=== PATIENT | male | born 1995 | race Caucasian/White ===

== ENCOUNTER 2018-06-06 11:01 | Emergency (ER) | payer OTHER, MEDICAID, SELFPAY ==
[2018-06-06 11:30] VITALS: BP 113/69; PULSE 89; RESP 16; TEMP 37.4; O2SAT 100
[2018-06-06] MEDS: SODIUM CHLORIDE 0.9% 1,000 ML 1000 ML IV ×3 (12:12→15:05)
[2018-06-06] MEDS: ONDANSETRON 4 MG/2 ML INJ IV (12:12)
--- NOTE | 2018-06-06 12:14 | ED.ABDPAIN ---
HPI - Abdominal Pain General Chief Complaint: Abdominal Pain Stated Complaint: thinks food poisoning, rapid weight loss Time Seen by Provider: 06/06/18 11:18 Source: patient and family Mode of arrival: ambulatory Limitations: no limitations History of Present Illness HPI narrative: 22-year-old otherwise healthy male presents to the emergency department with his mother and a chief complaint of significant nausea, vomiting, diarrhea and crampy abdominal pain since Monday. He states he works at a local [employer] and has heard other ill persons have been there. He denies recent international travel. He denies recent antibiotic use, he denies exposure to bad food. He has lost about 11 pounds complaint: abdominal pain Onset (ago): day(s) Pain Consistency: intermittent Location: diffuse Severity: moderate Quality: cramping Radiation: none Migration to: no migration Relieving factors: nothing Exacerbating factors: nothing Context: possible food poisoning Associated symptoms: nausea, vomiting, diarrhea, fever and chills Related Data Previous Rx's Medication Instructions Recorded ciprofloxacin HCl 500 mg PO BID #14 tab 06/06/18 ondansetron [Zofran ODT] 4 mg PO Q6-8H PRN #10 tab 06/06/18 Allergies Allergy/AdvReac Type Severity Reaction Status Date / Time bacitracin Allergy Mild skin Unverified 01/31/18 13:10 [From Neosporin irritation ([id number])] neomycin Allergy Mild Unverified 01/31/18 13:10 [From Neosporin ([id number])] polymyxin B Allergy Mild Unverified 01/31/18 13:10 [From Neosporin ([id number])] Review of Systems Review of Systems All systems reviewed & are unremarkable except as noted in HPI and below Constitutional Reports body ache(s), Reports chills, Reports fever(s), Denies lethargy and Reports weakness Eyes Denies change in vision, Denies eye discharge, Denies irritation and Denies loss of vision ENT Ears, Nose, Mouth, and Throat: Denies change in voice, Denies neck pain and Denies sore throat Cardiovascular Denies chest pain, Denies irregular heart rhythm, Denies lightheadedness, Denies palpitations, Denies dyspnea, Denies dyspnea on exertion and Denies orthopnea Respiratory Denies cough, Denies dyspnea, Denies dyspnea on exertion and Denies wheezing Gastrointestinal Gastrointestinal: Denies abdominal pain, Denies change in bowel habits, Reports diarrhea, Reports nausea and Reports vomiting Genitourinary Denies hematuria, Denies flank pain, Denies urinary incontinence and Denies urinary urgency Musculoskeletal Denies neck pain Integumentary/Breasts Denies pruritus, Denies erythema, Denies rash and Denies wounds Neurologic Denies confusion, Denies loss of vision and Reports weakness Psychiatric Denies anxiety, Denies confusion, Denies depression, Denies homicidal ideation and Denies suicidal ideation Endocrine Denies palpitations Hematologic/Lymphatic Denies easy bruising Allergic/Immunologic Denies wheezing [facility] Social History Smoking Status: Never smoker Exam Narrative Exam Narrative: GENERAL: This is a well-nourished, well-developed patient, in mild distress. HEAD: Atraumatic. Normocephalic. No temporal or scalp tenderness. EYES: Pupils equal round and reactive. Extraocular motions intact. No scleral icterus. No injection or drainage. ENT: Nose without bleeding, purulent drainage or septal hematoma. Throat without erythema, tonsillar hypertrophy or exudate. Uvula midline. Airway patent. NECK: Trachea midline. No JVD or lymphadenopathy. Supple, nontender, no meningeal signs. CARDIOVASCULAR: Regular rate and rhythm without murmurs, gallops, or rubs. RESPIRATORY: Clear to auscultation. Breath sounds equal bilaterally. No wheezes, rales, or rhonchi. GASTROINTESTINAL: Abdomen soft, non-tender, nondistended. No hepato-splenomegaly, or palpable masses. No guarding. EXTREMITIES: No clubbing, cyanosis, or edema. No joint tenderness, effusion, or edema noted. BACK: Nontender without deformity or crepitance. No flank tenderness. NEURO: AOx3. SKIN: No rash or erythema. Initial Vital Signs Initial Vital Signs: Vital Signs Temperature 99.3 F 06/06/18 11:30 Pulse Rate 89 06/06/18 11:30 Respiratory Rate 16 06/06/18 11:30 Blood Pressure 113/69 06/06/18 11:30 Pulse Oximetry 100 06/06/18 11:30 Course Orders Ordered: Discontinued Medications Sodium Chloride (Normal Saline 0.9%) 1,000 mls @ 1,000 mls/hr IV BOLUS PRN PRN Reason: Diarrhea Last Infusion: 06/06/18 16:21 Dose: 0 mls/hr Admin: 06/06/18 15:05 Dose: 1,000 mls/hr Infusion: 06/06/18 15:05 Dose: 0 mls/hr Admin: 06/06/18 13:43 Dose: 1,000 mls/hr Infusion: 06/06/18 13:43 Dose: 0 mls/hr Admin: 06/06/18 12:12 Dose: 1,000 mls/hr Ondansetron HCl (Zofran) 4 mg IV NOW ONE Stop: 06/06/18 11:49 Last Admin: 06/06/18 12:12 Dose: 4 mg Vital Signs - 8 hr 06/06/18 11:30 Temperature 99.3 F Pulse Rate 89 Respiratory Rate 16 Blood Pressure 113/69 Pulse Oximetry 100 MDM - Abdominal Pain Lab Data Result diagrams: 06/06/18 12:05 06/06/18 12:05 Lab Results 06/06/18 06/06/18 06/06/18 Range/Units 12:05 12:05 14:45 WBC 8.7 (4.5-11.0) X10^3/uL RBC 4.27 L (4.5-5.9) X10^6/uL Hgb 13.7 (13.5-17.5) g/dL Hct 38.5 L (41-53) % MCV 90.1 (80-100) fL MCH 32.2 (26-34) PG MCHC 35.7 (30-36) % RDW 12.4 (11.6-14.8) % Plt Count 203 (150-400) X10^3/uL Neut % (Auto) 59.1 (50-75) % Lymph % (Auto) 17.6 L (25-40) % [place] % (Auto) 20.3 H (3-14) % Eos % (Auto) 2.2 (2-4) % Baso % (Auto) 0.8 (0-2) % Neut # (Auto) 5100 (7725-2529) /uL Sodium 138 (137-145) mmol/L Potassium 3.7 (3.4-5.1) mmol/L Chloride 101 (98-107) mmol/L Carbon Dioxide 28 (22-32) mmol/L BUN 11 (9-20) mg/dL Creatinine 0.80 (0.66-1.25) mg/dL Estimated GFR > 60.0 (>60) mL/min BUN/Creatinine Ratio 13.8 (6-22) Glucose 93 (70-100) mg/dL Calcium 8.9 (8.4-10.2) mg/dL Total Bilirubin 1.3 (0.2-1.3) mg/dL AST 20 (17-59) IU/L ALT 25 (21-72) IU/L Alkaline Phosphatase 57 (38-126) U/L Total Protein 6.5 (6.3-8.2) g/dL Albumin 3.8 (3.5-5.0) g/dL Globulin 2.7 (1.7-4.1) g/dL Albumin/Globulin Ratio 1.4 (1.0-2.8) Stool Aeromonas Cult Awaiting culture res (Not Detect) Stl C. cayetanensis PCR Not detected (Not Detect) Stool Rotavirus (PCR) Not detected (Not Detect) Stool Adenovirus (PCR) Not detected (Not Detect) Stool Astrovirus (PCR) Not detected (Not Detect) Stool Cryptosporidium PCR Not detected (Not Detect) Stl E.coli Shiga Tox PCR Not detected (Not Detect) St Sh/Enteroin Ecoli PCR Not detected (Not Detect) Stool E coli O157 PCR Not Reportable Stl Enterotoxigenic E PCR Not detected (Not Detect) Stool EPEC (PCR) Not detected (Not Detect) Stl E. histolytica PCR Not detected (Not Detect) Stool Giardia Lamblia PCR Not detected (Not Detect) Stool Sapovirus (PCR) Not detected (Not Detect) Stl P. shigelloides PCR Not detected (Not Detect) St Y.enterocolitica PCR Not detected (Not Detect) Stool Vibrio (PCR) Not detected (Not Detect) Stl Vibrio cholerae PCR Not detected (Not Detect) Stl Enteroaggr Ecoli PCR Not detected (Not Detect) Stl Norovirus GI/GII PCR Not detected (Not Detect) Campylobacter (PCR) Detected H (Not Detect) C. difficile Tox (PCR) Not detected (Not Detect) Salmonella (PCR) Not detected (Not Detect) Point of care testing: Point of Care Testing Glucose POC 83 Urine Dip Bedside Urine Glucose Negative Bedside Urine Bilirubin - Negative Bedside Urine Ketone - Negative Urine Specific [place] 1.015 Bedside Urine Occult Blood - Negative Bedside Urine pH 6.0 Bedside Urine Protein - Negative Bedside Urine Urobilinogen - Negative Bedside Urine Nitrite - Negative Bedside Urine Leukocytes - Negative Esterase Discharge Plan Departure Patient Disposition: Home Clinical Impression: Campylobacter diarrhea Discharge Date/Time: 06/06/18 18:38 Interventions: ED Discharge Assessment Last Done: 06/06/18 18:37 Instructions: Diarrhea Activity Restrictions/Additional Instructions: 1. Drink plenty of fluids with frequent small sips. 2. For the next 24 hours a clear liquid diet is advised. After that please employ a brat diet which would include bananas, rice, apples, toast. 3. Please take medications as directed. 4. Please follow-up with your doctor in the next 1-2 days. Call the office for an appointment. 5. Please return to the emergency Department for any worsening or persistent symptoms, such as increasing pain or fever. Prescriptions: New ciprofloxacin HCl 500 mg tablet 500 mg PO BID Qty: 14 RF: 0 ondansetron [Zofran ODT] 4 mg tablet,disintegrating 4 mg PO Q6-8H PRN (Reason: nausea and vomiting) Qty: 10 RF: 0 Stand Alone Forms: Work/School Restrictions
[2018-06-06 12:15] LABS: Add Manual Diff / Slide Review NO; Basophils Percent Auto 0.8 % (0-2); Eosinophils Percent Auto 2.2 % (2-4); Hematocrit 38.5 % (41-53); Hemoglobin 13.7 g/dL (13.5-17.5); Lymphocytes Percent Auto 17.6 % (25-40); Mean Corpuscular HGB Conc 35.7 % (30-36); Mean Corpuscular Hemoglobin 32.2 PG (26-34); Mean Corpuscular Volume 90.1 fL (80-100); Monocytes Percent Auto 20.3 % (3-14); Neutrophils Absolute Auto 5100 /uL (3000-5900); Neutrophils Percent Auto 59.1 % (50-75); Platelet Count 203 X10^3/uL (150-400); Red Blood Cell Count 4.27 X10^6/uL (4.5-5.9); Red Cell Distribution Width 12.4 % (11.6-14.8); White Blood Cell Count 8.7 X10^3/uL (4.5-11.0)
[2018-06-06 12:26] LABS: Alanine Aminotransferase 25 IU/L (21-72); Albumin 3.8 g/dL (3.5-5.0); Albumin Globulin Ratio 1.4 (1.0-2.8); Alkaline Phosphatase 57 U/L (38-126); Aspartate Aminotransferase 20 IU/L (17-59); BUN Creatinine Ratio 13.8 (6-22); Bilirubin Total 1.3 mg/dL (0.2-1.3); Blood Urea Nitrogen 11 mg/dL (9-20); Calcium 8.9 mg/dL (8.4-10.2); Carbon Dioxide 28 mmol/L (22-32); Chloride 101 mmol/L (98-107); Estimated Glomerular Filt Rate > 60.0 mL/min (>60); Globulin 2.7 g/dL (1.7-4.1); Glucose 93 mg/dL (70-100); HEMOLYSIS < 15 (0-50); Potassium 3.7 mmol/L (3.4-5.1); Sodium 138 mmol/L (137-145); Total Protein 6.5 g/dL (6.3-8.2)
--- NOTE | 2018-06-06 12:46 | ED_ITS ---
HPI - Abdominal Pain General Chief Complaint: Abdominal Pain Stated Complaint: thinks food poisoning, rapid weight loss Time Seen by Provider: 06/06/18 11:18 Source: patient and family Mode of arrival: ambulatory Limitations: no limitations History of Present Illness HPI narrative: 22-year-old otherwise healthy male presents to the emergency department with his mother and a chief complaint of significant nausea, vomiting , diarrhea and crampy abdominal pain since Monday. He states he works at a local [employer] and has heard other ill persons have been there. He denies recent international travel. He denies recent antibiotic use, he denies exposure to bad food. He has lost about 11 pounds complaint: abdominal pain Onset (ago): day(s) Pain Consistency: intermittent Location: diffuse Severity: moderate Quality: cramping Radiation: none Migration to: no migration Relieving factors: nothing Exacerbating factors: nothing Context: possible food poisoning Associated symptoms: nausea, vomiting, diarrhea, fever and chills Related Data Previous Rx's Medication Instructions Recorded ciprofloxacin HCl 500 mg PO BID #14 tab 06/06/18 ondansetron [Zofran ODT] 4 mg PO Q6-8H PRN #10 tab 06/06/18 Allergies Allergy/AdvReac Type Severity Reaction Status Date / Time bacitracin Allergy Mild skin Unverified 01/31/18 13:10 [From Neosporin irritation ([id number])] neomycin Allergy Mild Unverified 01/31/18 13:10 [From Neosporin ([id number])] polymyxin B Allergy Mild Unverified 01/31/18 13:10 [From Neosporin ([id number])] Review of Systems Review of Systems All systems reviewed & are unremarkable except as noted in HPI and below Constitutional Reports body ache(s), Reports chills, Reports fever(s), Denies lethargy and Reports weakness Eyes Denies change in vision, Denies eye discharge, Denies irritation and Denies loss of vision ENT Ears, Nose, Mouth, and Throat: Denies change in voice, Denies neck pain and Denies sore throat Cardiovascular Denies chest pain, Denies irregular heart rhythm, Denies lightheadedness, Denies palpitations, Denies dyspnea, Denies dyspnea on exertion and Denies orthopnea Respiratory Denies cough, Denies dyspnea, Denies dyspnea on exertion and Denies wheezing Gastrointestinal Gastrointestinal: Denies abdominal pain, Denies change in bowel habits, Reports diarrhea, Reports nausea and Reports vomiting Genitourinary Denies hematuria, Denies flank pain, Denies urinary incontinence and Denies urinary urgency Musculoskeletal Denies neck pain Integumentary/Breasts Denies pruritus, Denies erythema, Denies rash and Denies wounds Neurologic Denies confusion, Denies loss of vision and Reports weakness Psychiatric Denies anxiety, Denies confusion, Denies depression, Denies homicidal ideation and Denies suicidal ideation Endocrine Denies palpitations Hematologic/Lymphatic Denies easy bruising Allergic/Immunologic Denies wheezing [facility] Social History Smoking Status: Never smoker Exam Narrative Exam Narrative: GENERAL: This is a well-nourished, well-developed patient, in mild distress. HEAD: Atraumatic. Normocephalic. No temporal or scalp tenderness. EYES: Pupils equal round and reactive. Extraocular motions intact. No scleral icterus. No injection or drainage. ENT: Nose without bleeding, purulent drainage or septal hematoma. Throat without erythema, tonsillar hypertrophy or exudate. Uvula midline. Airway patent. NECK: Trachea midline. No JVD or lymphadenopathy. Supple, nontender, no meningeal signs. CARDIOVASCULAR: Regular rate and rhythm without murmurs, gallops, or rubs. RESPIRATORY: Clear to auscultation. Breath sounds equal bilaterally. No wheezes , rales, or rhonchi. GASTROINTESTINAL: Abdomen soft, non-tender, nondistended. No hepato-splenomegaly , or palpable masses. No guarding. EXTREMITIES: No clubbing, cyanosis, or edema. No joint tenderness, effusion, or edema noted. BACK: Nontender without deformity or crepitance. No flank tenderness. NEURO: AOx3. SKIN: No rash or erythema. Initial Vital Signs Initial Vital Signs: Vital Signs Temperature 99.3 F 06/06/18 11:30 Pulse Rate 89 06/06/18 11:30 Respiratory Rate 16 06/06/18 11:30 Blood Pressure 113/69 06/06/18 11:30 Pulse Oximetry 100 06/06/18 11:30 Course Orders Ordered: Discontinued Medications Sodium Chloride (Normal Saline 0.9%) 1,000 mls @ 1,000 mls/hr IV BOLUS PRN PRN Reason: Diarrhea Last Infusion: 06/06/18 16:21 Dose: 0 mls/hr Admin: 06/06/18 15:05 Dose: 1,000 mls/hr Infusion: 06/06/18 15:05 Dose: 0 mls/hr Admin: 06/06/18 13:43 Dose: 1,000 mls/hr Infusion: 06/06/18 13:43 Dose: 0 mls/hr Admin: 06/06/18 12:12 Dose: 1,000 mls/hr Ondansetron HCl (Zofran) 4 mg IV NOW ONE Stop: 06/06/18 11:49 Last Admin: 06/06/18 12:12 Dose: 4 mg Vital Signs - 8 hr 06/06/18 11:30 Temperature 99.3 F Pulse Rate 89 Respiratory Rate 16 Blood Pressure 113/69 Pulse Oximetry 100 MDM - Abdominal Pain Lab Data Result diagrams: 06/06/18 12:05 06/06/18 12:05 Lab Results 06/06/18 06/06/18 06/06/18 Range/Units 12:05 12:05 14:45 WBC 8.7 (4.5-11.0) X10^3/uL RBC 4.27 L (4.5-5.9) X10^6/uL Hgb 13.7 (13.5-17.5) g/dL Hct 38.5 L (41-53) % MCV 90.1 (80-100) fL MCH 32.2 (26-34) PG MCHC 35.7 (30-36) % RDW 12.4 (11.6-14.8) % Plt Count 203 (150-400) X10^3/uL Neut % (Auto) 59.1 (50-75) % Lymph % (Auto) 17.6 L (25-40) % [place] % (Auto) 20.3 H (3-14) % Eos % (Auto) 2.2 (2-4) % Baso % (Auto) 0.8 (0-2) % Neut # (Auto) 5100 (5082-0056) /uL Sodium 138 (137-145) mmol/L Potassium 3.7 (3.4-5.1) mmol/L Chloride 101 (98-107) mmol/L Carbon Dioxide 28 (22-32) mmol/L BUN 11 (9-20) mg/dL Creatinine 0.80 (0.66-1.25) mg/dL Estimated GFR > 60.0 (>60) mL/min BUN/Creatinine Ratio 13.8 (6-22) Glucose 93 (70-100) mg/dL Calcium 8.9 (8.4-10.2) mg/dL Total Bilirubin 1.3 (0.2-1.3) mg/dL AST 20 (17-59) IU/L ALT 25 (21-72) IU/L Alkaline Phosphatase 57 (38-126) U/L Total Protein 6.5 (6.3-8.2) g/dL Albumin 3.8 (3.5-5.0) g/dL Globulin 2.7 (1.7-4.1) g/dL Albumin/Globulin Ratio 1.4 (1.0-2.8) Stool Aeromonas Cult Awaiting culture res (Not Detect) Stl C. cayetanensis PCR Not detected (Not Detect) Stool Rotavirus (PCR) Not detected (Not Detect) Stool Adenovirus (PCR) Not detected (Not Detect) Stool Astrovirus (PCR) Not detected (Not Detect) Stool Cryptosporidium PCR Not detected (Not Detect) Stl E.coli Shiga Tox PCR Not detected (Not Detect) St Sh/Enteroin Ecoli PCR Not detected (Not Detect) Stool E coli O157 PCR Not Reportable Stl Enterotoxigenic E PCR Not detected (Not Detect) Stool EPEC (PCR) Not detected (Not Detect) Stl E. histolytica PCR Not detected (Not Detect) Stool Giardia Lamblia PCR Not detected (Not Detect) Stool Sapovirus (PCR) Not detected (Not Detect) Stl P. shigelloides PCR Not detected (Not Detect) St Y.enterocolitica PCR Not detected (Not Detect) Stool Vibrio (PCR) Not detected (Not Detect) Stl Vibrio cholerae PCR Not detected (Not Detect) Stl Enteroaggr Ecoli PCR Not detected (Not Detect) Stl Norovirus GI/GII PCR Not detected (Not Detect) Campylobacter (PCR) Detected H (Not Detect) C. difficile Tox (PCR) Not detected (Not Detect) Salmonella (PCR) Not detected (Not Detect) Point of care testing: Point of Care Testing Glucose POC 83 Urine Dip Bedside Urine Glucose Negative Bedside Urine Bilirubin - Negative Bedside Urine Ketone - Negative Urine Specific [place] 1.015 Bedside Urine Occult Blood - Negative Bedside Urine pH 6.0 Bedside Urine Protein - Negative Bedside Urine Urobilinogen - Negative Bedside Urine Nitrite - Negative Bedside Urine Leukocytes - Negative Esterase Discharge Plan Departure Patient Disposition: Home Clinical Impression: Campylobacter diarrhea Discharge Date/Time: 06/06/18 18:38 Interventions: ED Discharge Assessment Last Done: 06/06/18 18:37 Instructions: Diarrhea Activity Restrictions/Additional Instructions: 1. Drink plenty of fluids with frequent small sips. 2. For the next 24 hours a clear liquid diet is advised. After that please employ a brat diet which would include bananas, rice, apples, toast. 3. Please take medications as directed. 4. Please follow-up with your doctor in the next 1-2 days. Call the office for an appointment. 5. Please return to the emergency Department for any worsening or persistent symptoms, such as increasing pain or fever. Prescriptions: New ciprofloxacin HCl 500 mg tablet 500 mg PO BID Qty: 14 RF: 0 ondansetron [Zofran ODT] 4 mg tablet,disintegrating 4 mg PO Q6-8H PRN (Reason: nausea and vomiting) Qty: 10 RF: 0 Stand Alone Forms: Work/School Restrictions
[2018-06-06 12:54] VITALS: BP 127/99; PULSE 76; RESP 16; TEMP 37.1; O2SAT 99
[2018-06-06 13:09] VITALS: BP 101/53; PULSE 81; RESP 16; O2SAT 100
[2018-06-06 14:18] VITALS: BP 110/58; PULSE 75; RESP 16; O2SAT 100
[2018-06-06 15:57] VITALS: BP 124/57; PULSE 94; RESP 16; O2SAT 100
[2018-06-06 17:33] VITALS: BP 100/45; PULSE 74; RESP 16; O2SAT 100
[2018-06-06 17:42] LABS: Campylobacter Detected (Not Detect); Clostridium difficile toxin AB Not Detected (Not Detect); Cryptosporidium Not Detected (Not Detect); Cyclospora cayetanensis Not Detected (Not Detect); Enteroaggregative E.coli Not Detected (Not Detect); Enteropathogenic E.coli Not Detected (Not Detect); Enterotoxigenic E.coli It/st Not Detected (Not Detect); Plesiomonsa shigelloides Not Detected (Not Detect); Salmonella Not Detected (Not Detect); Shiga-like toxin-prod E.coli Not Detected (Not Detect); Shigella/Enteroinvasive E.coli Not Detected (Not Detect); Vibrio Not Detected (Not Detect); Vibrio cholerae Not Detected (Not Detect); Yersinia enterocolitica Not Detected (Not Detect)
[2018-06-06 17:43] LABS: Adenovirus F 40/41 Not Detected (Not Detect); Astrovirus Not Detected (Not Detect); Entamoeba histolytica Not Detected (Not Detect); Giardia lamblia Not Detected (Not Detect); Norovirus GI/GII Not Detected (Not Detect); Rotavirus A Not Detected (Not Detect); Sapovirus Not Detected (Not Detect)
== END 2018-06-06 18:38 | disposition home or self-care (01) ==
PROVIDERS: Emergency Provider Emergency Medicine; PCP Family Medicine
DX: A04.5 Campylobacter enteritis (principal)
CPT/HCPCS: 36591; 80053; 81003; 82962; 85025; 87507; 96361; 96374; 99284; J2405

== ENCOUNTER 2019-03-31 19:00 | Emergency (ER) | payer OTHER, MEDICAID, SELFPAY ==
[2019-03-31 19:07] VITALS: BP 136/76; PULSE 84; RESP 16; TEMP 36.7; O2SAT 98
--- NOTE | 2019-03-31 19:08 | DI.RAD.S_ITS ---
PROCEDURE: XR ANKLE LT MIN 3V INDICATIONS: unable to bear weight TECHNIQUE: 3 views of the ankle were acquired. COMPARISON: [facility], , ANKLE 3 VIEWS LEFT, 07/01/2008, 14:37. FINDINGS: Bones: No fractures or dislocations. Ankle mortise is normally aligned. No suspicious bony lesions. Soft tissues: No tibiotalar joint effusion. Achilles tendon appears normal. IMPRESSION: No fracture or dislocation. Dictated by: Halima Reyes M.D. on 03/31/2019 at 19:54 Approved by: Halima Reyes M.D. on 03/31/2019 at 19:56
--- NOTE | 2019-03-31 20:02 | ED.LOWEXIN ---
HPI - Extremity Injury (Lower) <Una Mcconnell PA-C - Last Filed: 03/31/19 21:04> General Chief Complaint: Extremity Injury, Lower Stated Complaint: injured left foot last night Time Seen by Provider: 03/31/19 19:18 Source: patient Mode of arrival: ambulatory Limitations: no limitations History of Present Illness HPI Narrative: This 23-year-old male states that he rolled his left ankle when walking home from the bar last night since. He states he woke up this morning and was unable to bear weight due to pain. He states he did not fall. He denies any other injury. He took some ibuprofen this morning. Related Data Previous Rx's Medication Instructions Recorded ciprofloxacin HCl 500 mg PO BID #14 tab 06/06/18 ondansetron [Zofran ODT] 4 mg PO Q6-8H PRN #10 tab 06/06/18 Allergies Allergy/AdvReac Type Severity Reaction Status Date / Time bacitracin Allergy Mild skin Unverified 01/31/18 13:10 [From Neosporin irritation ([id number])] neomycin Allergy Mild Unverified 01/31/18 13:10 [From Neosporin ([id number])] polymyxin B Allergy Mild Unverified 01/31/18 13:10 [From Neosporin ([id number])] Review of Systems <Una Mcconnell PA-C - Last Filed: 03/31/19 21:04> Review of Systems ROS Unobtainable: All systems reviewed & are unremarkable except as noted in HPI and below PFSH <Una Mcconnell PA-C - Last Filed: 03/31/19 21:04> Medical History (Updated 03/31/19 @ 20:27 by Una Mcconnell PA-C) No chronic problems (Chronic) Surgical History (Updated 03/31/19 @ 20:27 by Una Mcconnell PA-C) History of hand surgery (Resolved) Status post bronchoscopy (Resolved) Social History Smoking Status: Never smoker Social History Smoking Status: Never smoker Exam <Una Mcconnell PA-C - Last Filed: 03/31/19 21:04> Narrative Exam Narrative: GENERAL APPEARANCE: Patient sitting comfortably, in no distress. LUNGS: Clear to auscultation bilaterally. HEART: Regular rate and rhythm without murmur, normal S1, S2, no S3 or S4. NEUROVASCULAR: Left lower extremity sensation grossly intact, warm and pink with brisk cap refill MUSCULOSKELETAL: Left ankle mild effusion, tender inferior to and around the lateral malleolus, no point tenderness elsewhere. Achilles is intact by palpation. He is able to plantar flex and dorsiflex the toes. Reduced ankle range of motion secondary to tenderness, especially with inversion. Unable to fully assess for laxity secondary to tenderness Initial Vital Signs Initial Vital Signs: Vital Signs Temperature 98.1 F 03/31/19 19:07 Pulse Rate 84 03/31/19 19:07 Respiratory Rate 16 03/31/19 19:07 Blood Pressure 136/76 03/31/19 19:07 Pulse Oximetry 98 03/31/19 19:07 <DO Roney Rodgers Last Filed: 03/31/19 21:15> Initial Vital Signs Initial Vital Signs: Vital Signs Temperature 98.1 F 03/31/19 19:07 Pulse Rate 84 03/31/19 19:07 Respiratory Rate 16 03/31/19 19:07 Blood Pressure 136/76 03/31/19 19:07 Pulse Oximetry 98 03/31/19 19:07 Course <BARBARA Husain Last Filed: 03/31/19 21:04> Orders Ordered: ED Orders 03/31/19 19:08 XR ankle LT min 3V Stat Vital Signs - 8 hr 03/31/19 19:07 03/31/19 20:34 Temperature 98.1 F 98.3 F Pulse Rate 84 74 Respiratory Rate 16 16 Blood Pressure 136/76 119/71 Pulse Oximetry 98 97 <DO Roney Rodgers Filed: 03/31/19 21:15> Orders Ordered: ED Orders 03/31/19 19:08 XR ankle LT min 3V Stat Vital Signs - 8 hr 03/31/19 19:07 03/31/19 20:34 Temperature 98.1 F 98.3 F Pulse Rate 84 74 Respiratory Rate 16 16 Blood Pressure 136/76 119/71 Pulse Oximetry 98 97 MDM - Extremity Injury (Lower) <Una Mcconnell PA-C - Last Filed: 03/31/19 21:04> Imaging Data ankle: Radiologist's impression: [address] [address] XRay Report Signed Patient: Ronald Tan [facility]#: [id number] : 1995Acct:[id number] Age/Sex: 23 / MDate of Service: 03/31/19 Loc: ED Accession Number: [id number] Procedure: XR ankle LT min 3V Ordering Provider: Viral Batres D.O. PROCEDURE: XR ANKLE LT MIN 3V INDICATIONS: unable to bear weight TECHNIQUE: 3 views of the ankle were acquired. COMPARISON: [facility], , ANKLE 3 VIEWS LEFT, 07/01/2008, 14:37. FINDINGS: Bones: No fractures or dislocations. Ankle mortise is normally aligned. No suspicious bony lesions. Soft tissues: No tibiotalar joint effusion. Achilles tendon appears normal. IMPRESSION: No fracture or dislocation. Dictated by: Halima Reyes M.D. on 03/31/2019 at 19:54 Approved by: Halima Reyes M.D. on 03/31/2019 at 19:56 Discharge Plan Departure Patient Disposition: Home Clinical Impression: Ankle sprain and strain Discharge Date/Time: 03/31/19 20:35 Interventions: ED Discharge Assessment Last Done: 03/31/19 20:34 Instructions: DI for Ankle Sprain Activity Restrictions/Additional Instructions: There is no visible broken bone on your x-ray today, and your injury and pain are consistent with a sprained ankle. Please wear the splint that we gave you whenever you are bearing weight to help with pain and stability. Gentle walking on flat ground is okay as you tolerate. Please take ibuprofen 800 mg every 8 hours and you can add Tylenol in addition to this as needed. Continue ice tonight. As we talked about, you should return if you have any acutely worsening symptoms. Call your insurance tomorrow or the health human resources operations manager at [facility] ([phone]) to get set up with a new primary care provider so that you can follow up in about a week. As we discussed, you may need repeat x-rays if you are not getting better, or a referral to physical therapy if not improving. Prescriptions: No Action ciprofloxacin HCl 500 mg tablet 500 mg PO BID Qty: 14 RF: 0 ondansetron [Zofran ODT] 4 mg tablet,disintegrating 4 mg PO Q6-8H PRN (Reason: nausea and vomiting) Qty: 10 RF: 0 <Jose Meza DO - Last Filed: 03/31/19 21:15> Cosign ED Attending Javier Attestation: I was available for consultation during this patient's emergency department encounter
--- NOTE | 2019-03-31 20:21 | PC.NURSE ---
Air splint applied to left ankle, pt able to ambulate around room without crutches. Pt states he can use crutches from home if needed.
[2019-03-31 20:34] VITALS: BP 119/71; PULSE 74; RESP 16; TEMP 36.8; O2SAT 97
== END 2019-03-31 20:35 | disposition home or self-care (01) ==
PROVIDERS: Emergency Provider Internal Medicine; PCP Family Medicine
DX: S93.402A Sprain of unspecified ligament of left ankle, initial encounter (principal)
CPT/HCPCS: 73610; 99282; 99283

== ENCOUNTER 2019-06-19 20:40 | Emergency (ER) | payer OTHER, MEDICAID, SELFPAY ==
[2019-06-19 21:02] VITALS: BP 133/81; PULSE 76; RESP 18; TEMP 36.9; O2SAT 100; BMI 21.6
--- NOTE | 2019-06-19 21:38 | PC.NURSE ---
Pt with swollen glands around upper area of neck near jaw. Pt UTD on immunizations as far as he knows. Denies sore throat but states that the inside of his throat in the very back hurts when he yawns. Denies exposure to strep, no recent exposure to mono that he knows of. Alert and oriented x4. Pt also states he awoke with hives blisters all over his body that lasted about a day then went away on their own. Person attending with pt states the hives looked more like blisters. Has picture on phone.
--- NOTE | 2019-06-19 22:20 | ED.NECK ---
HPI - Neck Pain/Injury General Chief Complaint: Neck Pain/Injury Stated Complaint: RASH, SWOLLEN LYMPH NODES Time Seen by Provider: 06/19/19 21:51 Source: patient Mode of arrival: ambulatory Limitations: no limitations History of Present Illness HPI Narrative: Patient is a 23-year-old male who presents with swollen submandibular lymph nodes. He says he noticed it about a week ago. He has no throat pain no difficulty swallowing he denies any productive cough or shortness of breath. He has some mild right ear pain that been ongoing for 1 or 2 weeks. He moves his neck very easily he has no headache. He says he sweats at night but that is typical for him he otherwise has no fever or chills. Related Data Previous Rx's Medication Instructions Recorded ciprofloxacin HCl 500 mg PO BID #14 tab 06/06/18 ondansetron [Zofran ODT] 4 mg PO Q6-8H PRN #10 tab 06/06/18 amoxicillin 500 mg PO BID #14 cap 06/19/19 Allergies Allergy/AdvReac Type Severity Reaction Status Date / Time bacitracin Allergy Mild skin Unverified 01/31/18 13:10 [From Neosporin irritation ([id number])] neomycin Allergy Mild Unverified 01/31/18 13:10 [From Neosporin ([id number])] polymyxin B Allergy Mild Unverified 01/31/18 13:10 [From Neosporin ([id number])] Review of Systems Review of Systems Narrative: GENERAL: Denies chills, fatigue, malaise, fever, sweats, travel HEENT: HPI RESPIRATORY: Denies dyspnea, cough, wheezing, hemoptysis, sputum. CARDIOVASCULAR: Denies chest pain, palpitations, orthopnea, edema GASTROINTESTINAL: Denies nausea, vomiting, abdominal pain, diarrhea, constipation, melena. : Denies dysuria, frequency, incontinence, hematuria, urinary retention, flank pain. MUSCULOSKELETAL: Denies weakness, joint pain, or bony pain SKIN: No rash, no erythema, no pruritus NEUROLOGIC: Denies weakness, dizziness, headache, numbness, change in speech, confusion PSYCHIATRIC: No concerning psychosocial issues. 12 point review of systems is negative except for those stated above and HPI [facility] Medical History No chronic problems (Chronic) Surgical History History of hand surgery (Resolved) Status post bronchoscopy (Resolved) Social History Smoking Status: Never smoker Social History Smoking Status: Never smoker Exam Initial Vital Signs Initial Vital Signs: Vital Signs Temperature 98.4 F 06/19/19 21:02 Pulse Rate 76 06/19/19 21:02 Respiratory Rate 18 06/19/19 21:02 Blood Pressure 133/81 06/19/19 21:02 Pulse Oximetry 100 06/19/19 21:02 GENERAL: Well-appearing, well-nourished and in no acute distress. HEENT: Head atraumatic,EOMI, pupils reactive, face symmetric, neck is supple no meningeal signs EARS: Tympanic membranes visualized, no erythema or bulging, no hemotympanum PHARYNX: No erythema, no tonsillar exudate, mild bilateral submandibular cervical lymphadenopathy CARDIOVASCULAR: Regular rate and rhythm without murmurs, rubs or gallops. RESPIRATORY: Breath sounds equal bilaterally, no wheezes rales or rhonchi. ABDOMEN: Soft, nontender. Normoactive bowel sounds all 4 quadrants. No guarding or rebound. EXTREMITIES: Normal range of motion, no clubbing or edema. Neurovascularly intact NEUROLOGICAL: Alert and oriented x4.Normal gait and speech. Cranial nerves II through XII grossly int SKIN: Warm, dry, no laceration, no petechiae, no rashes or lesions. Course Orders Ordered: Discontinued Medications Amoxicillin ( Trimox 250mg Prepack) 1 bottle [facility] Stop: 06/19/19 22:28 Last Admin: 06/19/19 22:35 Dose: 1 bottle Documented by: LREED Vital Signs Vital signs: Vital Signs - 8 hr 06/19/19 21:02 06/19/19 22:39 Temperature 98.4 F 99 F Pulse Rate 76 79 Respiratory Rate 18 16 Blood Pressure 133/81 129/65 Pulse Oximetry 100 97 MDM - Neck Pain/Injury Lab Data Labs: Point of Care Testing Rapid Strep A Positive Discharge Plan Departure Patient Disposition: Home Clinical Impression: Strep pharyngitis Discharge Date/Time: 06/19/19 22:44 Instructions: DI for Strep Throat Activity Restrictions/Additional Instructions: *You have been diagnosed with strep throat *What to do: Increase fluid intake lymph elderly likely from stress *Continue to take medications as directed Amoxicillin 500 mg twice a day for 7 *Follow up with your primary care provider in 2-3 days *Return to ER if you should have increasing neck pain difficulty swallowing off fevers or any new, worsening or concerning symptoms Prescriptions: New amoxicillin 500 mg capsule 500 mg PO BID Qty: 14 RF: 0 No Action ciprofloxacin HCl 500 mg tablet 500 mg PO BID Qty: 14 RF: 0 ondansetron [Zofran ODT] 4 mg tablet,disintegrating 4 mg PO Q6-8H PRN (Reason: nausea and vomiting) Qty: 10 RF: 0 Referrals: Walter Barreto MD [Primary Care Provider] -
[2019-06-19] MEDS: AMOXICILLIN 250 MG PREPACK 1 BOTTLE MISC (22:35)
[2019-06-19 22:39] VITALS: BP 129/65; PULSE 79; RESP 16; TEMP 37.2; O2SAT 97
--- NOTE | 2019-06-21 15:54 | PC.NURSE ---
Pt lost his amoxicillin, mother called to request new script. Spoke w/ Ashley De Los Santos who approved. Called to [facility] in [place].
== END 2019-06-19 22:44 | disposition home or self-care (01) ==
PROVIDERS: Emergency Provider Emergency Medicine; PCP Family Medicine
DX: J02.0 Streptococcal pharyngitis (principal)
CPT/HCPCS: 87880; 99283

== ENCOUNTER 2020-03-29 12:44 | Emergency (ER) | payer OTHER, MEDICAID, SELFPAY ==
[2020-03-29] VITALS (8 sets, daily range): BP systolic 122–162; BP diastolic 67–84; PULSE 72–94; RESP 12–23; TEMP 37.2; O2SAT 97–100; BMI 22.3
--- NOTE | 2020-03-29 14:33 | DI.RAD.S_ITS ---
PROCEDURE: XR CHEST 1V INDICATIONS: syncope TECHNIQUE: One view of the chest was acquired. COMPARISON: None. FINDINGS: Surgical changes and devices: None. Lungs and pleura: Lungs are clear. No pleural effusions or pneumothorax. Mediastinum: Mediastinal contours appear normal. Heart size is normal. Bones and chest wall: No suspicious bony lesions. Overlying soft tissues appear unremarkable. IMPRESSION: No acute cardiopulmonary process is evident. Dictated by: Luís Lopez M.D. on 03/29/2020 at 13:47 Approved by: Luís Lopez M.D. on 03/29/2020 at 13:48
[2020-03-29 14:56] LABS: Add Manual Diff / Slide Review NO; Basophils Absolute Auto 100 /uL (0-100); Basophils Percent Auto 0.7 % (0-2); Eosinophils Absolute Auto 100 /uL (0-450); Eosinophils Percent Auto 0.7 % (2-4); Hematocrit 43.7 % (41-53); Hemoglobin 15.7 g/dL (13.5-17.5); Lymphocytes Absolute Auto 1000 /uL (1100-4500); Lymphocytes Percent Auto 9.5 % (25-40); Mean Corpuscular Hemoglobin 33.6 PG (26-34); Mean Corpuscular Volume 93.3 fL (80-100); Monocytes Absolute Auto 600 /uL (0-900); Monocytes Percent Auto 5.6 % (3-14); Neutrophils Absolute Auto 8500 /uL (1500-7000); Neutrophils Percent Auto 83.5 % (50-75); Platelet Count 247 X10^3/uL (150-400); Red Blood Cell Count 4.68 X10^6/uL (4.5-5.9); Red Cell Distribution Width 12.3 % (11.6-14.8); White Blood Cell Count 10.1 X10^3/uL (4.5-11.0)
[2020-03-29 15:10] LABS: Creatine Kinase 107 U/L (55-170); Magnesium 1.9 mg/dL (1.6-2.3)
[2020-03-29] MEDS: hydrOXYzine pamoate 25 MG CAPSULE 50 MG PO (15:10)
[2020-03-29 15:11] LABS: Alanine Aminotransferase 28 IU/L (<50); Albumin Globulin Ratio 1.6 (1.0-2.8); Alkaline Phosphatase 96 U/L (38-126); Aspartate Aminotransferase 34 IU/L (17-59); BUN Creatinine Ratio 19.3 (6-22); Bilirubin Total 1.5 mg/dL (0.2-1.3); Blood Urea Nitrogen 16 mg/dL (9-20); Carbon Dioxide 26 mmol/L (22-32); Chloride 103 mmol/L (98-107); Estimated Glomerular Filt Rate > 60.0 mL/min (>60); Globulin 3.1 g/dL (1.7-4.1); Glucose 105 mg/dL (70-100); HEMOLYSIS < 15 (0-50); Potassium 4.1 mmol/L (3.4-5.1); Sodium 138 mmol/L (137-145); Total Protein 8.1 g/dL (6.3-8.2)
[2020-03-29 15:23] LABS: NT-proBNP (BNP-Adult 18+) 14 pg/mL (<125); Troponin I < 0.012 ng/mL (0.01-0.034)
[2020-03-29 15:25] LABS: CKMB % Relative Index 0.4 % (1.5-5.0); Creatine Kinase MB 0.46 ng/mL (<2.37)
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
== END 2020-03-29 16:50 | disposition home or self-care (01) ==
PROVIDERS: Emergency Provider Nurse Practitioner Family; PCP Family Medicine
DX: R55 Syncope and collapse (principal); F41.9 Anxiety disorder, unspecified
CPT/HCPCS: 36415; 71045; 80053; 82550; 82553; 83735; 83880; 84484; 85025; 93005; 99283; 99284

== ENCOUNTER 2020-06-13 12:40 | Emergency (ER) | payer OTHER, MEDICAID, SELFPAY ==
[2020-06-13 12:49] VITALS: BP 146/92; PULSE 75; RESP 18; TEMP 37.2; O2SAT 98; BMI 20.9
--- NOTE | 2020-06-13 12:58 | DI.RAD.S_ITS ---
PROCEDURE: XR SHOULDER RT MIN 2V INDICATIONS: shoulder injury and pain TECHNIQUE: 3 views of the shoulder were acquired. COMPARISON: Merged With [facility], CR, XR CHEST 1V, 03/29/2020, 14:37. FINDINGS: Bones: No fractures or dislocations. No suspicious bony lesions. Visualized ribs appear intact. Soft tissues: No suspicious soft tissue calcifications. The visualized lung demonstrates an unremarkable appearance. IMPRESSION: Unremarkable plain films. If it would be helpful for clinical management decision making, please consider a dedicated, scheduled shoulder MRI for further evaluation (assuming that there is no contraindication). If there is strong clinical concern for a labral abnormality, this should be performed according to the arthrogram protocol. Dictated by: Prakash Perez M.D. on 06/13/2020 at 12:19 Approved by: Prakash Perez M.D. on 06/13/2020 at 12:20
[2020-06-13 13:59] VITALS: BP 134/80; PULSE 74; RESP 14; TEMP 36.8; O2SAT 100
[2020-06-13 15:09] VITALS: PULSE 76; O2SAT 97
[2020-06-13 15:11] VITALS: BP 143/82; PULSE 76; O2SAT 97
--- NOTE | 2020-06-14 00:04 | ED_ITS ---
HPI - Extremity Injury (Upper) <SOULEYMANE Ovalles - Last Filed: 06/14/20 00:18> General Chief Complaint: Extremity Injury, Upper Stated Complaint: Torn Rt Rotator Cuff, Not Getting Better Time Seen by Provider: 06/13/20 13:58 Source: patient Mode of arrival: Ambulatory Limitations: no limitations History of Present Illness HPI narrative: This is a 24-year-old male, former smoker, who presents to ED with right anterior shoulder pain for 1 week. Patient reports he was wrestling with his friend and he was in locked in arm bar position with forward elevation and hyper extended position stating I should've tapped out. Patient has been using shoulder immobilizer for last 3 days which helps with pain. Patient reports pain increases with abduction and forward flexion. Right dominant hand. Patient had taken Tylenol a couple of times without much improvement. Patient reports intact sensation and mobility distally and denies swelling or numbness. Related Data Home Medications Medication Instructions Recorded Confirmed sertraline mg 06/13/20 Previous Rx's Medication Instructions Recorded hydroxyzine HCl 50 mg PO TID PRN #20 tab 03/29/20 hydrocodone-acetaminophen [[place]] 1 tab PO BID PRN #7 tab 06/13/20 Allergies Allergy/AdvReac Type Severity Reaction Status Date / Time neomycin Allergy Mild Verified 06/13/20 12:49 [From Neosporin ([id number])] polymyxin B Allergy Mild Verified 06/13/20 12:49 [From Neosporin ([id number])] Review of Systems <SOULEYMANE Ovalles - Last Filed: 06/14/20 00:18> Review of Systems Narrative: General: Denies fever, chills, fatigue, malaise, sweats. Respiratory: Denies dyspnea, cough, wheezing, hemoptysis, sputum. Cardiovascular: Denies chest pain, palpitations, orthopnea, edema. Musculoskeletal: See HPI Skin: Denies rash, skin lesions, or other. Neurologic: Denies weakness, headache, numbness, change in speech, confusion, seizures, incoordination. Psychiatric: No concerning psychosocial issues. 12-point review of systems is negative except for those stated above. Patient History <SOULEYMANE Ovalles - Last Filed: 06/14/20 00:18> Surgical History History of hand surgery (Resolved) Status post bronchoscopy (Resolved) Social History Smoking Status: Former smoker Smoking Status: Former smoker tobacco type: cigarettes alcohol intake frequency: a few times a week Alcohol type: beer Substance Use Type: does not use Exam <SOULEYMANE Ovalles - Last Filed: 06/14/20 00:18> Narrative Exam Narrative: General appearance: well developed, well nourished, in no acute distress. Head: normocephalic, atraumatic, no scalp lesions, non-tender. ENT: Hearing grossly intact. Airway patent. Neck/Thyroid: neck supple, full range of motion, no visible masses or meningeal signs. No JVD, non-tender without lymphadenopathy. Skin: no suspicious rashes, lesions over visible areas. Warm and dry and appropriate color for ethnicity. Heart: no clubbing, no cyanosis, no edema. Lungs: Breathing even and unlabored. No stridor. No accessory muscles used. Able to speak in full sentences. Chest: normal shape and expansion. Abdomen: non-obese, non-distended. Neurologic: alert and oriented. 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 Psych: good eye contact, normal affect. Initial Vital Signs Initial Vital Signs: Vital Signs Temperature 98.9 F 06/13/20 12:49 Pulse Rate 75 06/13/20 12:49 Respiratory Rate 18 06/13/20 12:49 Blood Pressure 146/92 H 06/13/20 12:49 Pulse Oximetry 98 06/13/20 12:49 Extrem Right upper extremity: normal to inspection, normal capillary refill, no joint enlargement, shoulder/upper arm Details: tenderness Location: of the A-C joint and abnormal ROM Details: pain with active ROM and pain with passive ROM Details: with ABduction, with extension and with flexion; no swelling, wrist Details: normal to inspection; no tenderness and no swelling and hand Details: normal to inspection, normal capillary refill, neuromotor exam normal, neurosensory exam normal, vascular exam Details: radial pulse present and normal capillary refill and normal ROM of fingers; no tenderness; ROM limited and no edema <Dori Mendez DO - Last Filed: 06/14/20 07:08> Initial Vital Signs Initial Vital Signs: Vital Signs Temperature 98.9 F 06/13/20 12:49 Pulse Rate 75 06/13/20 12:49 Respiratory Rate 18 06/13/20 12:49 Blood Pressure 146/92 H 06/13/20 12:49 Pulse Oximetry 98 06/13/20 12:49 Scores <[facility] SOULEYMANE Ahn - Last Filed: 06/14/20 00:18> GCS Ronnie coma scale eye opening: Spontaneous [place] coma scale verbal response: Orientated [place] coma scale motor response: Obey commands [place] coma scale total score: 15 MDM - Extremity Injury (Upper) <[facility] RENAN AhnP - Last Filed: 06/14/20 00:18> Differential Diagnosis Differential diagnosis: Likely dislocation of shoulder, fracture of clavicle and other (AC joint injury, shoulder strain, rotator cuff injury, dislocated shoulder) Medical Records Attestation: I reviewed the patient's medical records. Imaging Data XR-Shoulder RT: Radiologist's Impression: [address] [id number] XRay Report Signed Patient: Ronald Tan [facility]#: [id number] : 1995Acct:[id number] Age/Sex: te of Service: 06/13/20 Loc: ED Accession Number: [id number] Procedure: XR shoulder RT min 2V Ordering Provider: Dori Mendez D.O. PROCEDURE: XR SHOULDER RT MIN 2V INDICATIONS: shoulder injury and pain TECHNIQUE: 3 views of the shoulder were acquired. COMPARISON: [facility], CR, XR CHEST 1V, 03/29/2020, 14:37. FINDINGS: Bones: No fractures or dislocations. No suspicious bony lesions. Visualized ribs appear intact. Soft tissues: No suspicious soft tissue calcifications. The visualized lung demonstrates an unremarkable appearance. IMPRESSION: Unremarkable plain films. If it would be helpful for clinical management decision making, please consider a dedicated, scheduled shoulder MRI for further evaluation (assuming that there is no contraindication). If there is strong clinical concern for a labral abn ormality, this should be performed according to the arthrogram protocol. Dictated by: Prakash Perez M.D. on 06/13/2020 at 12:19 Approved by: Prakash Perez M.D. on 06/13/2020 at 12:20 [facility] Narrative Medical decision making narrative: X-ray test on right, dominant, shoulder unremarkable with no fractures or dislocation. Patient injury 1 week ago without much improvement using sporadic Tylenol. Intact sensation and pulses distally. Patient has limited active and passive range of motion on affected arm due to pain. Patient reports using shoulder immobilizer has been helpful. Patient attempted to be seen by his primary care physician but no available appointment till June. Discussed using [id number]-[id number] Tylenol and ibuprofen for pain and inflammation and to use shoulder immobilizer with intermittent gentle stretching to avoid frozen shoulder. Patient sent home with few tabs of [place] for severe pain and discussed narcotic pain medication precautions. Informed the patient may require physical therapy for rehabilitation. Advised to follow-up with [facility] orthopedist pain persists with conservative treatment for further evaluation and possible advanced imaging test. Patient verbalized understanding and agreement with the treatment plan. Discharge Plan Departure Patient Disposition: Home Clinical Impression: Anterior shoulder pain Discharge Date/Time: 06/13/20 15:14 Instructions: DI for Shoulder Pain Activity Restrictions/Additional Instructions: You have been diagnosed with [dominant hand right anterior shoulder pain. X-ray test does not show fractures or dislocation. ]. What to do: *Take your medications as directed. You can take oyin-[id number]-[id number] Tylenol and or Motrin as needed for pain. Tylenol 650-1000 mg up to 3 to 4 times a day as needed for pain. Ibuprofen 400 mg up to 3 to 4 times a day as needed for pain with food to decrease GI irritation for pain and inflammation. Use [place] only for severe pain since this is strong narcotic pain medication and he can cause drowsiness, constipation and addiction. Please do not drink alcohol, drive, or operate heavy equipments. [place] has been transmitted to [facility] [employer] [facility]. *Follow up with your primary care provider/[facility] in 2-3 days, call for an appointment. Let them know you were seen in the ED and that we asked you to be seen in follow up. You may need additional imaging test if pain persists. Please use gentle stretch affected arm several times a day out of the sling to prevent frozen shoulder. *Return to ED if you have any new, worsening, or concerning symptoms, such as [worsening pain, are increasing numbness/weakness/tingling on right arm, chest pain, breathing difficulty, unable to tolerate fluids, or any acute concerns]. Prescriptions: New hydrocodone-acetaminophen [[place]] 5-325 mg tablet 1 tab PO BID PRN (Reason: pain) Qty: 7 RF: 0 No Action sertraline 25 mg tablet RF: 0 hydroxyzine HCl 50 mg tablet 50 mg PO TID PRN (Reason: anxiety) Qty: 20 RF: 0 Referrals: [facility] [Provider Group] Chente Benz [Primary Care Provider] - <Dori Mendez DO - Last Filed: 06/14/20 07:08> Cosign ED Attending Arature Attestation: I was immediately available in the department for consultation. Documentation has been reviewed. I agree with assessment and plan.
== END 2020-06-13 15:14 | disposition home or self-care (01) ==
PROVIDERS: Emergency Provider Nurse Practitioner Family; PCP Student in an Organized Health Care Education/Training Program
DX: M25.511 Pain in right shoulder (principal)
CPT/HCPCS: 73030; 99281; 99283

== ENCOUNTER 2020-07-10 11:49 | Emergency (ER) | payer OTHER, MEDICAID, SELFPAY ==
[2020-07-10 11:57] VITALS: BP 143/77; PULSE 86; RESP 18; TEMP 36.9; O2SAT 99; BMI 20.3
--- NOTE | 2020-07-10 12:12 | ED_ITS ---
HPI - Neck Pain/Injury General Chief Complaint: Neck Pain/Injury Stated Complaint: Right side of neck swelling Time Seen by Provider: 07/10/20 11:57 Source: patient and old records reviewed Mode of arrival: Family Vehicle Limitations: no limitations History of Present Illness HPI Narrative: Patient is a a 24-year-old male who presents with right-sided neck swelling which started about 3 days ago. He denies any sore throat or ear pain. He said last night it was unbearable and he could not sleep. He recently has a torn rotator cuff on his right shoulder and has been taking Tylenol and ibuprofen for that but has not helped or touched his neck pain. He denies any fever but admits to have been regular night sweats where he sweats through an entire comforter. He denies any unintentional weight loss. His older brother from Hodgkin's lymphoma at the age of 30 and was diagnosed at the age of 27. MD complaint: neck pain Onset (ago): day(s) (3) Related Data Home Medications Medication Instructions Recorded Confirmed sertraline mg 06/13/20 Previous Rx's Medication Instructions Recorded hydroxyzine HCl 50 mg PO TID PRN #20 tab 03/29/20 hydrocodone-acetaminophen [Cary] 1 tab PO BID PRN #7 tab 06/13/20 hydrocodone-acetaminophen [Cary] 1 tab PO Q6H PRN #10 tab 07/10/20 Allergies Allergy/AdvReac Type Severity Reaction Status Date / Time neomycin Allergy Mild Verified 06/13/20 12:49 [From Neosporin ([id number])] polymyxin B Allergy Mild Verified 06/13/20 12:49 [From Neosporin ([id number])] Review of Systems Review of Systems ROS Unobtainable: All systems reviewed & are unremarkable except as noted in HPI and below Constitutional Constitutional: Denies headache(s), Denies lethargy, Denies malaise, Reports night sweats and Denies poor appetite Eyes Eyes: Denies change in vision, Denies eye discharge, Denies irritation and Denies loss of vision ENT Ears, Nose, Mouth, and Throat: Reports as per HPI, Denies headache(s), Reports neck mass, Reports neck pain, Denies sinus pain and Denies sore throat Cardiovascular Cardiovascular: Denies chest pain, Denies irregular heart rhythm, Denies lightheadedness, Denies palpitations, Denies dyspnea, Denies dyspnea on exertion and Denies orthopnea Respiratory Respiratory: Denies cough, Denies dyspnea, Denies dyspnea on exertion and Denies wheezing Gastrointestinal Gastrointestinal: Denies abdominal pain, Denies change in bowel habits, Denies diarrhea, Denies nausea and Denies vomiting Musculoskeletal Musculoskeletal: Reports neck pain Integumentary/Breasts Skin/Breast: Denies pruritus, Denies erythema, Denies rash and Denies wounds Neurologic Neurologic: Denies headache(s) and Denies loss of vision Endocrine Endocrine: Denies palpitations Allergic/Immunologic Allergic/Immunologic: Denies wheezing Patient History Surgical History History of hand surgery (Resolved) Status post bronchoscopy (Resolved) Social History Smoking Status: Former smoker Smoking Status: Former smoker tobacco type: cigarettes alcohol intake frequency: a few times a week Alcohol type: beer Substance Use Type: does not use Exam Initial Vital Signs Initial Vital Signs: Vital Signs Temperature 98.5 F 07/10/20 11:57 Pulse Rate 86 07/10/20 11:57 Respiratory Rate 18 07/10/20 11:57 Blood Pressure 143/77 H 07/10/20 11:57 Pulse Oximetry 99 07/10/20 11:57 GENERAL: Alert well-appearing young and in no acute distress. HEENT: Head atraumatic,EOMI, pupils reactive, face symmetric, moist mucous membranes NECK: Obvious swelling to the right neck and lymphadenopathy no erythema EARS: Tympanic membrane visualized bilaterally no erythema PHARYNX: No erythema no exudative tonsils no uvula deviation CARDIOVASCULAR: Regular rate and rhythm without murmurs, rubs or gallops. RESPIRATORY: Breath sounds equal bilaterally, no wheezes rales or rhonchi. ABDOMEN: Soft, nontender. Normoactive bowel sounds all 4 quadrants. No guarding or rebound. EXTREMITIES: Normal range of motion, no clubbing or edema. Neurovascularly intact NEUROLOGICAL: Alert and oriented x4.Normal gait and speech. SKIN: Warm, dry, no laceration, no petechiae, no rashes or lesions. No lymp hadenopathy is present in either axilla Course Orders Ordered: ED Orders 07/10/20 12:05 Complete Blood Count AUTO DIFF Stat Comprehensive Metabolic Panel Stat 07/10/20 12:39 CT soft tissue neck w con Stat 07/10/20 13:[address] [facility] - Director Of Online Education Stat Discontinued Medications Ketorolac Tromethamine (Toradol) 30 mg IV NOW ONE Stop: 07/10/20 12:15 Last Admin: 07/10/20 12:19 Dose: 30 mg Documented by: DRAKE Morphine Sulfate (Morphine) 2 mg IV NOW ONE Stop: 07/10/20 13:59 Last Admin: 07/10/20 14:25 Dose: 2 mg Documented by: SUKH Consultations Consultation #1: Dr. Benz, PCP aware of concern and will set up referral in call patient later this afternoon Time: 14:00 Vital Signs Vital signs: Vital Signs - 8 hr 07/10/20 11:57 07/10/20 15:09 Temperature 98.5 F Pulse Rate 86 82 Respiratory Rate 18 12 Blood Pressure 143/77 H 128/62 Pulse Oximetry 99 99 MDM - Neck Pain/Injury Lab Data Attestation: I reviewed the patient's lab results. Result diagrams: 07/10/20 12:05 07/10/20 12:05 Labs: Lab Results 07/10/20 07/10/20 Range/Units 12:05 12:05 WBC 11.2 H (4.5-11.0) X10^3/uL RBC 4.32 L (4.5-5.9) X10^6/uL Hgb 13.8 (13.5-17.5) g/dL Hct 39.7 L (41-53) % MCV 91.9 (80-100) fL MCH 31.9 (26-34) PG MCHC 34.7 (30-36) % RDW 12.4 (11.6-14.8) % Plt Count 284 (150-400) X10^3/uL Neut % (Auto) 64.4 (50-75) % Lymph % (Auto) 18.3 L (25-40) % [place] % (Auto) 12.4 (3-14) % Eos % (Auto) 4.2 H (2-4) % Baso % (Auto) 0.7 (0-2) % Neut # (Auto) 7200 H (6338-4545) /uL Lymph # (Auto) 2100 (4303-5389) /uL [place] # (Auto) 1400 H (0-900) /uL Eos # (Auto) 500 H (0-450) /uL Baso # (Auto) 100 (0-100) /uL Sodium 138 (137-145) mmol/L Potassium 4.3 (3.4-5.1) mmol/L Chloride 100 (98-107) mmol/L Carbon Dioxide 31 (22-32) mmol/L BUN 13 (9-20) mg/dL Creatinine 0.89 (0.66-1.25) mg/dL Estimated GFR > 60.0 (>60) mL/min BUN/Creatinine Ratio 14.6 (6-22) Glucose 110 H (70-100) mg/dL Calcium 9.4 (8.4-10.2) mg/dL Total Bilirubin 0.8 (0.2-1.3) mg/dL AST 29 (17-59) IU/L ALT 22 (<50) IU/L Alkaline Phosphatase 116 (38-126) U/L Total Protein 7.8 (6.3-8.2) g/dL Albumin 4.4 (3.5-5.0) g/dL Globulin 3.4 (1.7-4.1) g/dL Albumin/Globulin Ratio 1.3 (1.0-2.8) Point of Care Testing Rapid Strep A Negative Imaging Data CT soft tissue neck: Radiologist's Impression: PROCEDURE: CT SOFT TISSUE NECK W CON INDICATIONS: right sided neck swelling TECHNIQUE: After the administration of intravenous contrast, 3.0 mm axial sections acquired from the sella to the aortic arch. Additional oblique axial 3.0 mm sections acquired through the pharynx. 3 mm thick coronal and sagittal reformats were generated. For radiation dose reduction, the following was used: automated exposure control. COMPARISON: [facility], CT, C-SPINE WITHOUT CONTRAST, 09/22/2016, 7:15. FINDINGS: Image quality: Excellent. Lymph nodes: Numerous enlarged cervical lymph nodes are seen, which are more prominent on the right side than on the left. Physician Support Coordinator lymph nodes include: Right level 2A lymph node, 3.3 x 2 cm. Right level 2 B lymph node, 1.7 x 1 cm. Left level 2A lymph node, 1.7 x 1.1 cm. Vessels: Visualized vasculature appears patent. Neck spaces: Mild generalized infiltration can be seen of the subcutaneous fat, which is more prominent involving the right lateral and anterior neck than elsewhere. There is thickening of the platysma muscle. No focal fluid collections are seen to suggest abscess. The oropharynx, nasopharynx, and pharynx demonstrate no mucosal lesions. The vo jaquan cords, false vocal cords, pyriform sinuses, epiglottis, vallecula, and tongue base all appear normal. Glands: The parotid and submandibular glands appear normal. Thyroid gland demonstrates no significant abnormality. Miscellaneous: Visualized brain and orbits appear normal. Lung apices appear clear. Superficial soft tissues appear normal. There is a small amount residual thymus tissue seen, which is not regarded to be pathologic in a patient of this age. Bones: No suspicious bony lesions. Visualized sinuses and mastoids appear unremarkable. IMPRESSION: Multiple enlarged bilateral cervical lymph nodes are seen, which are more prominent on the right side than on the left. Given the family history of lymphoma, concern is raised for lymphoma. Differential diagnosis would also include reactive lymph nodes in this patient with apparent mild neck cellulitis, yet the degree of lymph node enlargement is out of proportion to the amount of apparent soft tissue infection. Please consider lymph node biopsy. Dictated by: Prakash Perez M.D. on 07/10/2020 at 11:53 Approved by: Prakash Perez M.D. on 07/10/2020 at 12:05 [facility] Narrative Medical decision making narrative: Concern for probable lymphoma. I have discussed case with patient's PCP who will get a biopsy in as soon as possible. Social work has been in to see and evaluate patient. Unfortunately both patient and mother have gone through this with his brother previously. Discharge Plan Departure Patient Disposition: Home Clinical Impression: Lymphadenopathy Discharge Date/Time: 07/10/20 15:00 Instructions: DI for Lymphadenopathy Activity Restrictions/Additional Instructions: *You have been diagnosed with lymphadenopathy *What to do: You will need a biopsy of lymph nodes. I have called and spoken with Dr. Benz who will be making arrangements and touch base with the later this afternoon *Continue to take medications as directed Cary 1 tablet every 6 hours if needed for severe pain-->[facility] [place] *Follow up with your primary care provider in 2-3 days *Return to ER if you should have difficulty breathing, increased pain or any new, worsening or concerning symptoms CONTROLLED SUBSTANCE DISCHARGE (Narcotoic/benzodiazepine/Flexeril/Phenergan) 1. You have been prescribed narcotic medications, it does have acetaminophen/Tylenol/paracetamol in it so do not take extra Tylenol or Tylenol containing products TRAMADOL DOES NOT CONTAIN TYLENOL 2. Please understand that we cannot provide further refills of narcotics, benzodiazepines or controlled substances through the ED and her pain management will need to be through your provider. 3. While on these medications you cannot drive or operate heavy machinery. 4. You cannot sign legal documents or perform any duties such as this. 5. As long as you're taking opiate pain medications he should also be taking a stool softener such as Colace, Dulcolax, MiraLAX or prune juice, to help avoid constipation. Prescriptions: New hydrocodone-acetaminophen [[place]] 5-325 mg tablet 1 tab PO Q6H PRN (Reason: pain) Qty: 10 RF: 0 No Action sertraline 25 mg tablet RF: 0 hydrocodone-acetaminophen [[place]] 5-325 mg tablet 1 tab PO BID PRN (Reason: pain) Qty: 7 RF: 0 hydroxyzine HCl 50 mg tablet 50 mg PO TID PRN (Reason: anxiety) Qty: 20 RF: 0 Referrals: Chente Benz [Non-Staff] -
--- NOTE | 2020-07-10 12:12 | PC.NURSE ---
Three days of right sided neck pain, getting worse over the course of time. Pain with movement. Denies injury or trauam. No recent illness. Patient reports nightsweats which he has had forever. Denies weight loss. Lungs clear, swallowing secretions with no difficulty. Reports feels tight in throat with swallowing.
[2020-07-10 12:16] LABS: Add Manual Diff / Slide Review NO; Basophils Absolute Auto 100 /uL (0-100); Basophils Percent Auto 0.7 % (0-2); Eosinophils Absolute Auto 500 /uL (0-450); Eosinophils Percent Auto 4.2 % (2-4); Hematocrit 39.7 % (41-53); Hemoglobin 13.8 g/dL (13.5-17.5); Lymphocytes Absolute Auto 2100 /uL (1100-4500); Lymphocytes Percent Auto 18.3 % (25-40); Mean Corpuscular HGB Conc 34.7 % (30-36); Mean Corpuscular Hemoglobin 31.9 PG (26-34); Mean Corpuscular Volume 91.9 fL (80-100); Monocytes Absolute Auto 1400 /uL (0-900); Monocytes Percent Auto 12.4 % (3-14); Neutrophils Absolute Auto 7200 /uL (1500-7000); Neutrophils Percent Auto 64.4 % (50-75); Platelet Count 284 X10^3/uL (150-400); Red Blood Cell Count 4.32 X10^6/uL (4.5-5.9); Red Cell Distribution Width 12.4 % (11.6-14.8); White Blood Cell Count 11.2 X10^3/uL (4.5-11.0)
[2020-07-10] MEDS: KETOROLAC 60 MG/2 ML VIAL 30 MG IV (12:19)
[2020-07-10 12:34] LABS: Alanine Aminotransferase 22 IU/L (<50); Albumin 4.4 g/dL (3.5-5.0); Albumin Globulin Ratio 1.3 (1.0-2.8); Alkaline Phosphatase 116 U/L (38-126); Aspartate Aminotransferase 29 IU/L (17-59); BUN Creatinine Ratio 14.6 (6-22); Bilirubin Total 0.8 mg/dL (0.2-1.3); Blood Urea Nitrogen 13 mg/dL (9-20); Calcium 9.4 mg/dL (8.4-10.2); Carbon Dioxide 31 mmol/L (22-32); Chloride 100 mmol/L (98-107); Estimated Glomerular Filt Rate > 60.0 mL/min (>60); Globulin 3.4 g/dL (1.7-4.1); Glucose 110 mg/dL (70-100); HEMOLYSIS < 15 (0-50); Potassium 4.3 mmol/L (3.4-5.1); Sodium 138 mmol/L (137-145); Total Protein 7.8 g/dL (6.3-8.2)
--- NOTE | 2020-07-10 12:39 | DI.CT.S_ITS ---
PROCEDURE: CT SOFT TISSUE NECK W CON INDICATIONS: right sided neck swelling TECHNIQUE: After the administration of intravenous contrast, 3.0 mm axial sections acquired from the sella to the aortic arch. Additional oblique axial 3.0 mm sections acquired through the pharynx. 3 mm thick coronal and sagittal reformats were generated. For radiation dose reduction, the following was used: automated exposure control. COMPARISON: [facility], CT, C-SPINE WITHOUT CONTRAST, 09/22/2016, 7:15. FINDINGS: Image quality: Excellent. Lymph nodes: Numerous enlarged cervical lymph nodes are seen, which are more prominent on the right side than on the left. Production Repairer lymph nodes include: Right level 2A lymph node, 3.3 x 2 cm. Right level 2 B lymph node, 1.7 x 1 cm. Left level 2A lymph node, 1.7 x 1.1 cm. Vessels: Visualized vasculature appears patent. Neck spaces: Mild generalized infiltration can be seen of the subcutaneous fat, which is more prominent involving the right lateral and anterior neck than elsewhere. There is thickening of the platysma muscle. No focal fluid collections are seen to suggest abscess. The oropharynx, nasopharynx, and pharynx demonstrate no mucosal lesions. The vocal cords, false vocal cords, pyriform sinuses, epiglottis, vallecula, and tongue base all appear normal. Glands: The parotid and submandibular glands appear normal. Thyroid gland demonstrates no significant abnormality. Miscellaneous: Visualized brain and orbits appear normal. Lung apices appear clear. Superficial soft tissues appear normal. There is a small amount residual thymus tissue seen, which is not regarded to be pathologic in a patient of this age. Bones: No suspicious bony lesions. Visualized sinuses and mastoids appear unremarkable. IMPRESSION: Multiple enlarged bilateral cervical lymph nodes are seen, which are more prominent on the right side than on the left. Given the family history of lymphoma, concern is raised for lymphoma. Differential diagnosis would also include reactive lymph nodes in this patient with apparent mild neck cellulitis, yet the degree of lymph node enlargement is out of proportion to the amount of apparent soft tissue infection. Please consider lymph node biopsy. Dictated by: Prakash Perez M.D. on 07/10/2020 at 11:53 Approved by: Prakash Perez M.D. on 07/10/2020 at 12:05
--- NOTE | 2020-07-10 14:04 | CM.SWNOTE ---
SENIOR UI SOFTWARE ENGINEER note SENIOR UI SOFTWARE ENGINEER consult requested for patient. Patient is a 24 y/o male who presents to ED due to mass on neck. Patient's brother from Hodgkin's Lymphoma at age 30 after dx at age 29. Patient is in ED with mother. SENIOR UI SOFTWARE ENGINEER enters room and introduces self and role. Patient is A+O x3, euthymic with slightly flat affect. Patient states he is worried about the mass on his neck and is aware of process for biopsy and diagnosis. Patient reports he is taking this process one step at a time and has coping mechanisms to help him focus on other things in times of ambiguity and trauma. Patient reports close friendships and strong relationships with family. Patient reports significant hx of trauma and loss during past 4 years. Patient states that during this time, he became able to limit his panic during times of ambiguity. Patient reports he started psych medication through his PCP several months ago, and has noticed a significant improvement in his anxiety, mood, and a decrease in the frequency of panic attacks. Patient denies SI/HI. Patient states he attempted counseling through [facility], but that the provider he worked with just asked my questions back to me. Patient reports that meetings with counselor were switched to phone (not Zoom) and that he found the meetings useless. Patient does indicate that he is open to additional support and does acknowledge that a potential diagnosis of cancer may be difficult for him. SENIOR UI SOFTWARE ENGINEER provides patient with education surrounding counseling, and empowers patient to request a different counselor if he feels he is not making progress with one. SENIOR UI SOFTWARE ENGINEER refers patient to [facility] in [place], and patient's mother puts phone number into phone. SENIOR UI SOFTWARE ENGINEER thanks family for their time and exits room. Plan will be d/c and patient will follow up with PCP for next steps. DEISY Mitchell
[2020-07-10] MEDS: MORPHINE 2 MG/ML INJ IV (14:25)
[2020-07-10 15:09] VITALS: BP 128/62; PULSE 82; RESP 12; O2SAT 99
== END 2020-07-10 15:00 | disposition home or self-care (01) ==
PROVIDERS: Emergency Provider Emergency Medicine
DX: R59.1 Generalized enlarged lymph nodes (principal)
CPT/HCPCS: 36415; 70491; 80053; 85025; 87880; 96374; 96375; 99284; J1885; J2270; Q9967

== ENCOUNTER 2020-09-26 14:13 | Emergency (ER) | payer OTHER, MEDICAID, SELFPAY ==
[2020-09-26 14:15] VITALS: BP 152/69; PULSE 74; RESP 16; TEMP 36.8; O2SAT 98; BMI 21.9
--- NOTE | 2020-09-26 14:30 | DI.RAD.S_ITS ---
PROCEDURE: XR FINGER LT MIN 2V INDICATIONS: pain, swelling TECHNIQUE: AP hand, 2 views of the 5th finger(s) acquired. COMPARISON: None. FINDINGS: Bones: No fractures or dislocations. No suspicious bony lesions. Soft tissues: No suspicious soft tissue calcifications. IMPRESSION: No acute fracture. No osseous lesion. If symptoms and/or clinical suspicion for pathology persist, further assessment with repeat, or advanced imaging (e.g., CT, MRI, or bone scan) may be helpful for further assessment. Dictated by: Dez Franklin M.D. on 09/26/2020 at 14:55 Approved by: Dez Franklin M.D. on 09/26/2020 at 14:55
--- NOTE | 2020-09-26 14:31 | DI.RAD.S_ITS ---
PROCEDURE: XR FINGER RT MIN 2V INDICATIONS: pain, swelling TECHNIQUE: AP hand, 2 views of the 1st finger(s) acquired. COMPARISON: None. FINDINGS: Bones: No fractures or dislocations. No suspicious bony lesions. Soft tissues: No suspicious soft tissue calcifications. IMPRESSION: No acute fracture. No osseous lesion. If symptoms and/or clinical suspicion for pathology persist, further assessment with repeat, or advanced imaging (e.g., CT, MRI, or bone scan) may be helpful for further assessment. Dictated by: Dez Franklin M.D. on 09/26/2020 at 14:54 Approved by: Dez Franklin M.D. on 09/26/2020 at 14:55
[2020-09-26] MEDS: KETOROLAC 60 MG/2 ML VIAL 15 MG IV (14:39)
[2020-09-26 14:58] LABS: Add Manual Diff / Slide Review NO; Basophils Absolute Auto 0 /uL (0-100); Basophils Percent Auto 0.6 % (0-2); Eosinophils Absolute Auto 200 /uL (0-450); Eosinophils Percent Auto 3.4 % (2-4); Hematocrit 42.9 % (41-53); Hemoglobin 14.8 g/dL (13.5-17.5); Lymphocytes Absolute Auto 1300 /uL (1100-4500); Lymphocytes Percent Auto 17.7 % (25-40); Mean Corpuscular HGB Conc 34.5 % (30-36); Mean Corpuscular Hemoglobin 32.2 PG (26-34); Mean Corpuscular Volume 93.3 fL (80-100); Monocytes Absolute Auto 700 /uL (0-900); Monocytes Percent Auto 10.1 % (3-14); Neutrophils Absolute Auto 4800 /uL (1500-7000); Neutrophils Percent Auto 68.2 % (50-75); Platelet Count 268 X10^3/uL (150-400); Red Cell Distribution Width 12.7 % (11.6-14.8); White Blood Cell Count 7.1 X10^3/uL (4.5-11.0)
[2020-09-26 15:09] LABS: Lactate (Lactic Acid) 1.1 mmol/L (0.7-2.1)
[2020-09-26 15:12] LABS: BUN Creatinine Ratio 18.2 (6-22); Blood Urea Nitrogen 14 mg/dL (9-20); Calcium 9.6 mg/dL (8.4-10.2); Carbon Dioxide 30 mmol/L (22-32); Chloride 101 mmol/L (98-107); Estimated Glomerular Filt Rate > 60.0 mL/min (>60); Glucose 100 mg/dL (70-100); HEMOLYSIS < 15 (0-50); Potassium 4.3 mmol/L (3.4-5.1); Sodium 137 mmol/L (137-145)
[2020-09-26 15:14] LABS: Erythrocyte Sedimentation Rate 19 MM/HR (0-15)
[2020-09-26 15:25] LABS: Procalcitonin < 0.05 ng/mL (<0.5)
[2020-09-26] MEDS: ACETAMINOPHEN 325 MG TABLET 650 MG PO (16:06)
[2020-09-26 16:11] VITALS: BP 153/70; PULSE 68; RESP 16; O2SAT 100
--- NOTE | 2020-09-26 21:44 | ED_ITS ---
HPI - Skin/Abscess/Foreign Bdy <RENAN OvallseP - Last Filed: 09/26/20 22:39> General Chief complaint: Skin/Abscess/Foreign Body Stated complaint: R THUMB L PINKY FINGER SWELLING, PAINFUL Time Seen by Provider: 09/26/20 14:17 Source: patient Mode of arrival: Ambulatory Limitations: no limitations History of Present Illness HPI narrative: This is a 25 year male, former smoker, who has noncontributory medical history presents to ED with father with chief complain of bilateral hand pain for last 2 days. Patient woke up with pain in right thumb and left little finger ago and last 24 hours redness, swelling, pain, warm became worse. Patient denies fever, chills, nausea or vomiting. Patient reports pain increases with movement. Patient reports intact sensation. Rates pain as 7/10 and constant. He describes as torch on hands. Right dominant hand. Patient reports he had skin injuries in bilateral hand when he went camping about a week ago but this has improved and healing at this time. Patient denies getting insect bites, trauma, other injuries. Denies history of IV drug use, diabetes. Reports drinks a couple of beers a day. Related Data Home Medications Medication Instructions Recorded Confirmed sertraline mg 06/13/20 Previous Rx's Medication Instructions Recorded doxycycline hyclate 100 mg PO BID 7 Days #14 cap 09/26/20 Allergies Allergy/AdvReac Type Severity Reaction Status Date / Time neomycin Allergy Mild Verified 06/13/20 12:49 [From Neosporin ([id number])] polymyxin B Allergy Mild Verified 06/13/20 12:49 [From Neosporin ([id number])] Review of Systems <Puma Ahn LASTING MACHINE OPERATOR - Last Filed: 09/26/20 22:39> Review of Systems Narrative: General: Denies fever, chills, fatigue, malaise, sweats. HEENT: Denies sinus pain, ear pain, sore throat, difficulty swallowing, dizziness. Respiratory: Denies dyspnea, cough, wheezing, hemoptysis, sputum. Cardiovascular: Denies chest pain, palpitations, orthopnea, edema. Gastrointestinal: Denies nausea, vomiting, abdominal pain, diarrhea, constipation, melena. : Denies dysuria, frequency, incontinence, hematuria, urinary retention. Musculoskeletal: See HPI Skin: See HPI Neurologic: Denies weakness, headache, numbness, change in speech, confusion, seizures, incoordination. Psychiatric: No concerning psychosocial issues. 12-point review of systems is negative except for those stated above. Patient History <SOULEYMANE Ovalles - Last Filed: 09/26/20 22:39> Surgical History History of hand surgery Status post bronchoscopy Social History Smoking Status: Former smoker Smoking Status: Former smoker tobacco type: cigarettes alcohol intake frequency: 0-2 drinks per day Alcohol type: beer Substance Use Type: marijuana Exam <SOULEYMANE Ovalles - Last Filed: 09/26/20 22:39> Narrative Exam Narrative: General appearance: well developed, well nourished, in no acute distress. Head: normocephalic, atraumatic, no scalp lesions, non-tender. ENT: Hearing grossly intact. Nose without bleeding, purulent discharge, septal hematoma or deviation. Mucous membrane moist, no mucosal lesion. Throat without erythema, tonsillar hypertrophy or exudate. Uvula in midline, airway patent. Neck/Thyroid: neck supple, full range of motion, no visible masses or meningeal signs. No JVD, non-tender without lymphadenopathy. Skin: Right thumb moderate swelling, demarcated erythema, warm to touch. A few areas of right hand epithelius scaly. Left little finger slightly warmth with swelling and small area ecchymotic. Warm and dry and appropriate color for ethnicity. Heart: no clubbing, no cyanosis, no edema. Lungs: Breathing even and unlabored. No stridor. No accessory muscles used. Able to speak in full sentences. Chest: normal shape and expansion. Abdomen: non-obese, non-distended. Neurologic: alert and oriented. Cognitive exam, MANAGER MOTOR and PNS grossly intact on informal exam. Psych: good eye contact, normal affect. Initial Vital Signs Initial Vital Signs: Vital Signs Temperature 98.2 F 09/26/20 14:15 Pulse Rate 74 09/26/20 14:15 Respiratory Rate 16 09/26/20 14:15 Blood Pressure 152/69 H 09/26/20 14:15 Pulse Oximetry 98 09/26/20 14:15 Extrem Right upper extremity: hand (thumb-skin marked) Details: abnormal to inspection, normal capillary refill, neurosensory exam normal, tenderness, abnormal ROM of finger Details: pain with active ROM and pain with passive ROM, warmth, swelling and other (No drainage, no fluctuance); no lacerations and no puncture wound Left upper extremity: hand (little finger) Details: normal capillary refill, neuromotor exam normal, tenderness, vascular exam Details: radial pulse present and normal capillary refill, abnormal ROM of finger Details: pain with active ROM and pain with passive ROM, warmth, swelling and ecchymosis; no crepitus <Dori Mendez DO - Last Filed: 09/27/20 00:54> Initial Vital Signs Initial Vital Signs: Vital Signs Temperature 98.2 F 09/26/20 14:15 Pulse Rate 74 09/26/20 14:15 Respiratory Rate 16 09/26/20 14:15 Blood Pressure 152/69 H 09/26/20 14:15 Pulse Oximetry 98 09/26/20 14:15 Scores <SOULEYMANE Ovalles - Last Filed: 09/26/20 22:39> GCS Ronnie coma scale eye opening: Spontaneous Ronnie coma scale verbal response: Orientated [place] coma scale motor response: Obey commands [place] coma scale total score: 15 qSOFA Altered Mental Status (GCS <15): No Respiratory rate greater than/equal to 22: No Systolic blood pressure less than or equal to 100: No qSOFA Total: 0 0-1 Not High Risk 1-3 High risk Course <SOULEYMANE Ovalles - Last Filed: 09/26/20 22:39> Orders Ordered: Discontinued Medications Acetaminophen (Acetaminophen 325 Mg Tablet) 650 mg PO NOW ONE Stop: 09/26/20 16:04 Last Admin: 09/26/20 16:06 Dose: 650 mg Documented by: MEME Ketorolac Tromethamine (Ketorolac 60 Mg/2 Ml Vial) 15 mg IV NOW ONE Stop: 09/26/20 14:31 Last Admin: 09/26/20 14:39 Dose: 15 mg Documented by: MEME Vital Signs Vital signs: Vital Signs - 8 hr 09/26/20 14:15 09/26/20 16:11 Temperature 98.2 F Pulse Rate 74 68 Respiratory Rate 16 16 Blood Pressure 152/69 H 153/70 H Pulse Oximetry 98 100 <Dori Mendez DO - Last Filed: 09/27/20 00:54> Orders Ordered: Discontinued Medications Acetaminophen (Acetaminophen 325 Mg Tablet) 650 mg PO NOW ONE Stop: 09/26/20 16:04 Last Admin: 09/26/20 16:06 Dose: 650 mg Documented by: MEME Ketorolac Tromethamine (Ketorolac 60 Mg/2 Ml Vial) 15 mg IV NOW ONE Stop: 09/26/20 14:31 Last Admin: 09/26/20 14:39 Dose: 15 mg Documented by: ENOCHARTIN Vital Signs Vital signs: Vital Signs - 8 hr 09/26/20 14:15 09/26/20 16:11 Temperature 98.2 F Pulse Rate 74 68 Respiratory Rate 16 16 Blood Pressure 152/69 H 153/70 H Pulse Oximetry 98 100 MDM - Skin/Abscess/Foreign Bdy <SOULEYMANE Ovalles - Last Filed: 09/26/20 22:39> Differential Diagnosis Differential diagnosis: Likely cellulitis, insect bites and other (erysipelas, gout, fracture) Medical Records Attestation: I reviewed the patient's medical records. Lab Data Attestation: I reviewed the patient's lab results. Result diagrams: 09/26/20 14:50 09/26/20 14:50 Labs: Lab Results 09/26/20 09/26/20 09/26/20 Range/Units 14:50 14:50 14:50 WBC 7.1 (4.5-11.0) X10^3/uL RBC 4.60 (4.5-5.9) X10^6/uL Hgb 14.8 (13.5-17.5) g/dL Hct 42.9 (41-53) % MCV 93.3 (80-100) fL MCH 32.2 (26-34) PG MCHC 34.5 (30-36) % RDW 12.7 (11.6-14.8) % Plt Count 268 (150-400) X10^3/uL Neut % (Auto) 68.2 (50-75) % Lymph % (Auto) 17.7 L (25-40) % [place] % (Auto) 10.1 (3-14) % Eos % (Auto) 3.4 (2-4) % Baso % (Auto) 0.6 (0-2) % Neut # (Auto) 4800 (6513-0896) /uL Lymph # (Auto) 1300 (8304-4394) /uL [place] # (Auto) 700 (0-900) /uL Eos # (Auto) 200 (0-450) /uL Baso # (Auto) 0 (0-100) /uL ESR 19 H (0-15) MM/HR Sodium 137 (137-145) mmol/L Potassium 4.3 (3.4-5.1) mmol/L Chloride 101 (98-107) mmol/L Carbon Dioxide 30 (22-32) mmol/L BUN 14 (9-20) mg/dL Creatinine 0.77 (0.66-1.25) mg/dL Estimated GFR > 60.0 (>60) mL/min BUN/Creatinine Ratio 18.2 (6-22) Glucose 100 (70-100) mg/dL Lactate (0.7-2.1) mmol/L Calcium 9.6 (8.4-10.2) mg/dL C-Reactive Protein 4.0 H (<1.0) mg/dL Procalcitonin < 0.05 (<0.5) ng/mL 09/26/20 Range/Units 14:50 WBC (4.5-11.0) X10^3/uL RBC (4.5-5.9) X10^6/uL Hgb (13.5-17.5) g/dL Hct (41-53) % MCV (80-100) fL MCH (26-34) PG MCHC (30-36) % RDW (11.6-14.8) % Plt Count (150-400) X10^3/uL Neut % (Auto) (50-75) % Lymph % (Auto) (25-40) % [place] % (Auto) (3-14) % Eos % (Auto) (2-4) % Baso % (Auto) (0-2) % Neut # (Auto) (0115-2915) /uL Lymph # (Auto) (0647-7832) /uL [place] # (Auto) (0-900) /uL Eos # (Auto) (0-450) /uL Baso # (Auto) (0-100) /uL ESR (0-15) MM/HR Sodium (137-145) mmol/L Potassium (3.4-5.1) mmol/L Chloride (98-107) mmol/L Carbon Dioxide (22-32) mmol/L BUN (9-20) mg/dL Creatinine (0.66-1.25) mg/dL Estimated GFR (>60) mL/min BUN/Creatinine Ratio (6-22) Glucose (70-100) mg/dL Lactate 1.1 (0.7-2.1) mmol/L Calcium (8.4-10.2) mg/dL C-Reactive Protein (<1.0) mg/dL Procalcitonin (<0.5) ng/mL Imaging Data XR-Thumb RT: Radiologist's Impression: [address] [id number] ReportSigned Patient: Ronald Tan [facility]#: [id number]: 1995Acct:[id number]/Sex: 25 / MDate of Service: 09/26/20Loc: EDAccession Number: [id number] Procedure: XR finger RT min 2V Ordering Provider: Puma Ahn PROCEDURE: XR FINGER RT MIN 2V INDICATIONS: pain, swelling TECHNIQUE: AP hand, 2 views of the 1st finger(s) acquired. COMPARISON: None. FINDINGS: Bones: No fractures or dislocations. No suspicious bony lesions. Soft tissues: No suspicious soft tissue calcifications. IMPRESSION: No acute fracture. No osseous lesion. If symptoms and/or clinical suspicion for pathology persist, further assessment with repeat, or advanced imaging (e.g. , CT, MRI, or bone scan) may be helpful for further assessment. Dictated by: Dez Franklin M.D. on 09/26/2020 at 14:54 Approved by: Dez Franklin M.D. on 09/26/2020 at 14:55 XR-Little finger LT: Radiologist's Impression: [address] [id number] ReportSigned Patient: Ronald Tan [facility]#: [id number]: 1995Acct:[id number]/Sex: 25 / MDate of Service: 09/26/20Loc: EDAccession Number: [id number] Procedure: XR finger LT min 2V Ordering Provider: Puma Ahn PROCEDURE: XR FINGER LT MIN 2V INDICATIONS: pain, swelling TECHNIQUE: AP hand, 2 views of the 5th finger(s) acquired. COMPARISON: None. FINDINGS: Bones: No fractures or dislocations. No suspicious bony lesions. Soft tissues: No suspicious soft tissue calcifications. IMPRESSION: No acute fracture. No osseous lesion. If symptoms and/or clinical suspicion for pathology persist, further assessment with repeat, or advanced imaging (e.g., CT, MRI, or bone scan) may be helpful for further assessment. Dictated by: Dez Franklin M.D. on 09/26/2020 at 14:55 Approved by: Dez Franklin M.D. on 09/26/2020 at 14:55 MDM Narrative Medical decision making narrative: This is a 25-year-old male who presented to ED with chief complain of nontraumatic right thumb burning pain, swelling, warm th for 2 days and left little finger pain, swelling, and bruise. No constitutional symptoms. Patient had some superficial skin injuries that Occurred during camping trip about a week ago but this is healing at this time. Physical exam is concerned for cellulitis versus erysipelas. Blood test indicates, No leukocytosis. Lactate was normal. Negative procalcitonin. Slightly increased ESR of 19, CRP of 4.0. Unremarkable chemistry test. X-ray test does not show acute findings such as fractures, unusual bony lesions, or dislocations. Considered gout but given the patient is very young, uric acid test was not done today. Patient was treated with Toradol IV, Tylenol and who treat patient has cellulitis with doxycycline BID for 7 day course. Patient advised to with PCP in 2 days and strict return precautions were discussed with patient. Patient verbalized understanding agreement with treatment plan. Patient advised to use dry warm pack on affected site to help with healing. Advised to take [id number] Tylenol Motrin as needed for pain management. <Dori Mendez, - Last Filed: 09/27/20 00:54> Lab Data Labs: Lab Results 09/26/20 09/26/20 09/26/20 Range/Units 14:50 14:50 14:50 WBC 7.1 (4.5-11.0) X10^3/uL RBC 4.60 (4.5-5.9) X10^6/uL Hgb 14.8 (13.5-17.5) g/dL Hct 42.9 (41-53) % MCV 93.3 (80-100) fL MCH 32.2 (26-34) PG MCHC 34.5 (30-36) % RDW 12.7 (11.6-14.8) % Plt Count 268 (150-400) X10^3/uL Neut % (Auto) 68.2 (50-75) % Lymph % (Auto) 17.7 L (25-40) % [place] % (Auto) 10.1 (3-14) % Eos % (Auto) 3.4 (2-4) % Baso % (Auto) 0.6 (0-2) % Neut # (Auto) 4800 (9195-9615) /uL Lymph # (Auto) 1300 (6016-0775) /uL [place] # (Auto) 700 (0-900) /uL Eos # (Auto) 200 (0-450) /uL Baso # (Auto) 0 (0-100) /uL ESR 19 H (0-15) MM/HR Sodium 137 (137-145) mmol/L Potassium 4.3 (3.4-5.1) mmol/L Chloride 101 (98-107) mmol/L Carbon Dioxide 30 (22-32) mmol/L BUN 14 (9-20) mg/dL Creatinine 0.77 (0.66-1.25) mg/dL Estimated GFR > 60.0 (>60) mL/min BUN/Creatinine Ratio 18.2 (6-22) Glucose 100 (70-100) mg/dL Lactate (0.7-2.1) mmol/L Calcium 9.6 (8.4-10.2) mg/dL C-Reactive Protein 4.0 H (<1.0) mg/dL Procalcitonin < 0.05 (<0.5) ng/mL 09/26/20 Range/Units 14:50 WBC (4.5-11.0) X10^3/uL RBC (4.5-5.9) X10^6/uL Hgb (13.5-17.5) g/dL Hct (41-53) % MCV (80-100) fL MCH (26-34) PG MCHC (30-36) % RDW (11.6-14.8) % Plt Count (150-400) X10^3/uL Neut % (Auto) (50-75) % Lymph % (Auto) (25-40) % [place] % (Auto) (3-14) % Eos % (Auto) (2-4) % Baso % (Auto) (0-2) % Neut # (Auto) (8922-1900) /uL Lymph # (Auto) (4929-9326) /uL [place] # (Auto) (0-900) /uL Eos # (Auto) (0-450) /uL Baso # (Auto) (0-100) /uL ESR (0-15) MM/HR Sodium (137-145) mmol/L Potassium (3.4-5.1) mmol/L Chloride (98-107) mmol/L Carbon Dioxide (22-32) mmol/L BUN (9-20) mg/dL Creatinine (0.66-1.25) mg/dL Estimated GFR (>60) mL/min BUN/Creatinine Ratio (6-22) Glucose (70-100) mg/dL Lactate 1.1 (0.7-2.1) mmol/L Calcium (8.4-10.2) mg/dL C-Reactive Protein (<1.0) mg/dL Procalcitonin (<0.5) ng/mL Discharge Plan Departure Patient Disposition: Home Clinical Impression: Cellulitis Qualifiers: Site of cellulitis: extremity Site of cellulitis of extremity: upper extremity Laterality: unspecified laterality Qualified Code(s): L03.119 - Cellulitis of unspecified part of limb Instructions: DI for Cellulitis -- Adult, DI for Hand Pain Activity Restrictions/Additional Instructions: You have been diagnosed with [pain in right thumb, left little finger likely from cellulitis P]. What to do: *Take your medications as directed. Please start antibiotic medication doxycycline twice a day for next 7 days. Your symptoms should be improving after at least couple of doses of antibiotic medications. Please take [id number] Tylenol and or Motrin as needed for discomfort. *Follow up with your primary care provider in 2-3 days, call for an appointment. Let them know you were seen in the ED and that we asked you to be seen in follow up. *Return to ED if you have any new, worsening, or concerning symptoms, such as [worsening pain, fever, swelling, redness, warmth, chest pain, breathing difficulty, unable to tolerate fluids or any acute concerns]. Prescriptions: New doxycycline hyclate 100 mg capsule 100 mg PO BID 7 Days Qty: 14 RF: 0 No Action sertraline 25 mg tablet RF: 0 Referrals: Chente Benz DO, MS [Primary Care Provider] - <Dori Mendez DO - Last Filed: 09/27/20 00:54> Cosign ED Attending Cosignature Attestation: I was immediately available in the department for consultation. Documentation has been reviewed. I agree with assessment and plan.
== END 2020-09-26 16:13 | disposition home or self-care (01) ==
PROVIDERS: Emergency Provider Nurse Practitioner Family; PCP Student in an Organized Health Care Education/Training Program
DX: L03.012 Cellulitis of left finger (principal); M79.644 Pain in right finger(s); R79.89 Other specified abnormal findings of blood chemistry
CPT/HCPCS: 36415; 73140; 80048; 83605; 84145; 85025; 85651; 86140; 96374; 99283; 99284; J1885

== ENCOUNTER 2020-10-20 15:17 | Emergency (ER) | payer OTHER, MEDICAID, SELFPAY ==
[2020-10-20 16:24] VITALS: BP 155/66; PULSE 73; RESP 16; O2SAT 97
[2020-10-20 17:06] LABS: COVID19 -Nasal RAPID POSITIVE (Negative)
--- NOTE | 2020-10-20 18:18 | ED_ITS ---
HPI - General Adult General Chief complaint: Upper Respiratory Symptoms Stated complaint: Left Hand, Discoloration Time Seen by Provider: 10/20/20 17:59 Source: patient Mode of arrival: Ambulatory Limitations: no limitations History of Present Illness HPI narrative: 25-year-old male with discoloration to the left index and middle finger and the thumb portion of his hand. He states he was treated for very similar symptom on his right hand. He was told that it was a cellulitis. Was placed on doxycycline and his symptoms improved for couple days and then he started noticing redness on his left hand. He also states he was recently exposed to someone with coronavirus. He is having a cough and vomiting. He is also concerned about coronavirus. Related Data Home Medications Medication Instructions Recorded Confirmed sertraline mg 06/13/20 Previous Rx's Medication Instructions Recorded doxycycline hyclate 100 mg PO BID 7 Days #14 tab 10/20/20 Allergies Allergy/AdvReac Type Severity Reaction Status Date / Time neomycin Allergy Mild Verified 06/13/20 12:49 [From Neosporin ([id number])] polymyxin B Allergy Mild Verified 06/13/20 12:49 [From Neosporin ([id number])] Review of Systems Constitutional Constitutional: Denies fever(s) and Denies headache(s) ENT Ears, Nose, Mouth, and Throat: Denies headache(s) Cardiovascular Cardiovascular: Denies chest pain and Denies dyspnea Respiratory Respiratory: Reports cough and Denies dyspnea Gastrointestinal Gastrointestinal: Denies change in bowel habits and Reports vomiting Genitourinary Genitourinary: Denies dysuria Genitourinary: Denies dysuria Musculoskeletal Musculoskeletal: Denies arthralgias and Denies myalgias Integumentary/Breasts Comments: Redness to left hand Neurologic Neurologic: Denies behavioral changes, Denies burning sensations and Denies headache(s) Psychiatric Psychiatric: Denies behavioral changes Hematologic/Lymphatic Hematologic/Lymphatic: Denies easy bleeding and Denies easy bruising Allergic/Immunologic Allergic/Immunologic: Denies urticaria Patient History Medical History Conjunctivitis Corneal abrasion Depression (01/26/15) Nasal contusion Rash (01/26/15) Surgical History History of hand surgery Status post bronchoscopy Social History Smoking Status: Former smoker Smoking Status: Former smoker tobacco type: cigarettes alcohol intake frequency: 0-2 drinks per day Alcohol type: beer Substance Use Type: marijuana Exam Initial Vital Signs Initial Vital Signs: Vital Signs Pulse Rate 73 10/20/20 16:24 Respiratory Rate 16 10/20/20 16:24 Blood Pressure 155/66 H 10/20/20 16:24 Pulse Oximetry 97 10/20/20 16:24 Const General: cooperative, comfortable, well developed and well groomed Limitations: mental status not altered HENMT Head: normal to inspection and normocephalic Resp Effort & Inspection: normal respiratory effort Cardio Pulses: radial pulses present on the left GI Inspection: non-distended Skin Other: Patient with redness and warmth to palpation on the dorsum of the left hand along the radial aspect involving the metacarpal of the index finger and ring finger. Neuro Sensory Exam: no sensory deficits noted Extrem Other: Full range of motion of joints of fingers of left hand and also left wrist. Course Orders Ordered: ED Orders 10/20/20 16:30 COVID19 Stat Vital Signs Vital signs: Vital Signs - 8 hr 10/20/20 18:36 Pulse Rate 75 Respiratory Rate 18 Blood Pressure 134/80 Pulse Oximetry 98 Medical Decision Making Lab Data Lab results reviewed: Yes I reviewed the patient's lab results. Labs: Lab Results 10/20/20 Range/Units 16:30 COVID-19 PCR Positive H (Negative) MDM Narrative Medical decision making narrative: Patient's coronavirus is positive. He was informed of this diagnosis. He was informed the CDC guidelines regarding quarantine himself. He is in no respiratory distress. Not tachypneic, not hypoxic. No indication for admission to the hospital. He does have redness on the dorsum of his left hand. It is warm to the touch. He is neurovascularly intact. It does appear to be cellulitis. He had similar issue with his right hand. That cleared after taking doxycycline. Unsure as to why he now has a cellulitis of his left hand. I did consider other diagnosis such as endocarditis given now the multiple locations of the cellulitis however he is no history and physical findings consistent with this. Considered potential blood clots given the fact that he has COVID-19 in the known issues with being hypercoagulable however he is vascularly intact and has brisk cap refill in this area. If he did not have COVID-19 and would consider this a uncomplicated cellulitis. There is no signs of an abscess. Plan will be is to treat him with antibiotics. He was instructed that the antibiotics were for the cellulitis and not for the COVID-19. He expressed understanding of this. He discuss return precautions and follow-up instructions with regard to both the cellulitis and the COVID. He expressed understanding and agreement. Discharge Plan Departure Patient Disposition: Home Clinical Impression: COVID-19, Cellulitis and abscess of hand Instructions: DI for Cellulitis -- Adult, DI for COVID-19 (Suspected or Confirmed ) Activity Restrictions/Additional Instructions: With regard to the coronavirus. You are to quarantine yourself for at least the next 10 days and after you have been 24 hours without any symptoms. If you start having shortness of breath please return to the emergency department. A prescription for antibiotics is electronically [facility] to [facility]. If the redness of your right hand starts getting worse please return to the emergency department. Prescriptions: New doxycycline hyclate 100 mg tablet 100 mg PO BID 7 Days Qty: 14 RF: 0 No Action sertraline 25 mg tablet RF: 0 Referrals: Chente Benz DO [place] [Primary Care Provider] -
[2020-10-20 18:36] VITALS: BP 134/80; PULSE 75; RESP 18; O2SAT 98
== END 2020-10-20 18:25 | disposition home or self-care (01) ==
PROVIDERS: Emergency Medicine; Emergency Provider Emergency Medicine; PCP Student in an Organized Health Care Education/Training Program
DX: U07.1 COVID-19 (principal); L03.114 Cellulitis of left upper limb
CPT/HCPCS: 87635; 99281; 99282

== ENCOUNTER 2020-12-05 19:14 | Emergency (ER) | payer OTHER, MEDICAID, SELFPAY ==
[2020-12-05 19:22] VITALS: BP 146/99; PULSE 124; RESP 18; TEMP 36.5; O2SAT 96; BMI 21.7
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
[2020-12-05] MEDS: LIDOCAINE 1% (PF) 2 ML INJ (19:40)
[2020-12-05 20:00] VITALS: BP 146/99; PULSE 117; RESP 18; O2SAT 95
[2020-12-05] MEDS: IBUPROFEN 400 MG TABLET PO (20:18)
[2020-12-05] MEDS: ACETAMINOPHEN 325 MG TABLET PO (20:19)
[2020-12-05 20:26] VITALS: BP 141/73; PULSE 95; RESP 18; O2SAT 100
== END 2020-12-05 20:29 | disposition home or self-care (01) ==
PROVIDERS: Emergency Provider Emergency Medicine; PCP Student in an Organized Health Care Education/Training Program
DX: S01.112A Laceration without foreign body of left eyelid and periocular area, initial encounter (principal); W22.8XXA Striking against or struck by other objects, initial encounter
CPT/HCPCS: 12011; 99281; 99283

== ENCOUNTER 2021-04-19 13:04 | Observation (INO) | payer OTHER, MEDICAID, SELFPAY ==
[2021-04-19] VITALS (7 sets, daily range): BP systolic 122–135; BP diastolic 60–75; PULSE 66–99; RESP 16–22; TEMP 36.6–37.6; O2SAT 94–99; BMI 26.6
[2021-04-19 13:41] LABS: Add Manual Diff / Slide Review NO; Basophils Absolute Auto 0 /uL (0-100); Basophils Percent Auto 0.3 % (0-2); Eosinophils Absolute Auto 200 /uL (0-450); Hemoglobin 14.4 g/dL (13.5-17.5); Lymphocytes Absolute Auto 1800 /uL (1100-4500); Lymphocytes Percent Auto 10.6 % (25-40); Mean Corpuscular HGB Conc 33.6 % (30-36); Mean Corpuscular Volume 95.1 fL (80-100); Monocytes Absolute Auto 800 /uL (0-900); Monocytes Percent Auto 4.9 % (3-14); Neutrophils Absolute Auto 13900 /uL (1500-7000); Neutrophils Percent Auto 83.2 % (50-75); Platelet Count 311 X10^3/uL (150-400); Red Blood Cell Count 4.52 X10^6/uL (4.5-5.9); White Blood Cell Count 16.7 X10^3/uL (4.5-11.0)
[2021-04-19] MEDS: SODIUM CHLORIDE 0.9% 1,000 ML 1000 ML IV ×2 (13:41→14:42)
[2021-04-19] MEDS: ONDANSETRON 4 MG/2 ML INJ IV (13:41)
[2021-04-19 13:47] LABS: Alanine Aminotransferase 41 IU/L (<50); Albumin Globulin Ratio 1.7 (1.0-2.8); Alkaline Phosphatase 101 U/L (38-126); Aspartate Aminotransferase 66 IU/L (17-59); BUN Creatinine Ratio 18.1 (6-22); Blood Urea Nitrogen 15 mg/dL (9-20); Calcium 9.1 mg/dL (8.4-10.2); Carbon Dioxide 14 mmol/L (22-32); Chloride 101 mmol/L (98-107); Estimated Glomerular Filt Rate > 60.0 mL/min (>60); Glucose 82 mg/dL (70-100); HEMOLYSIS < 15 (0-50); Lipase 75 U/L (23-300); Potassium 3.6 mmol/L (3.4-5.1); Sodium 137 mmol/L (137-145)
--- NOTE | 2021-04-19 15:18 | ED.NAVMDI ---
HPI - Nausea/Vomiting/Diarrhea General Chief complaint: Nausea/Vomiting/Diarrhea Stated complaint: threw up blood then passed out Time Seen by Provider: 04/19/21 14:53 Source: patient Mode of arrival: Ambulatory History of Present Illness HPI Narrative: This is a 25-year-old male who comes emergency department with complaint of throwing up blood. Patient states this morning he woke up he had been having a nose bleed, he was able to stop it with pressure. He states it seem like a lot of blood initially but did not last very long after he applied direct pressure. He states he not immediately afterwards but while afterwards he felt dizzy, he throughout blood several times. He states it was dark red in color. Patient states he also felt like he was going to pass out. He did not lose consciousness but states he was not able to keep his eyes open. He sort of bent over the sink in his bathroom and put his head down but still had trouble keeping his eyes open. Per patient he did not actually lose consciousness. He denies headache he does describe some abdominal discomfort radiating upwards. Patient denies any current shortness of breath. He was feeling quite nauseated when he arrived but received some antinausea medicine which was helpful. Patient denies any black or bloody stools. He has had some loose stools recently. Patient states he takes Zoloft and another medication for anxiety and depression. He did have scopes when he was aged 19 as well as bronchoscopy and was told that he had gastric ulcers at that time. They were also evaluating him for cancer but were told he may have had a bacterium in his lungs that resolved itself. Patient was seen at [facility] for approximately 6 months during this time frame until he was cleared. Patient denies any urinary symptoms. He has had some mild erythematous rash in occasional highs that happen intermittently. Patient denies any bruising, petechiae or abnormal bleeding. He does have a history of epistaxis in the past he states he has occasional use tobacco. He states he drinks a couple of drinks daily and will admit to 2-3 drinks typically. Patient states he uses marijuana intermittently. He is accompanied by his mother. Related Data Home Medications Medication Instructions Recorded Confirmed sertraline 25 mg tablet 75 mg PO DAILY 06/13/20 04/19/21 Allergies Allergy/AdvReac Type Severity Reaction Status Date / Time neomycin Allergy Mild Verified 04/19/21 17:45 [From Neosporin (wal-aal-akuda)] polymyxin B Allergy Mild Verified 04/19/21 17:45 [From Neosporin ([id number])] Review of Systems Review of Systems ROS Unobtainable: All systems reviewed & are unremarkable except as noted in HPI and below Patient History Medical History Conjunctivitis Corneal abrasion Depression (01/26/15) Nasal contusion Rash (01/26/15) Surgical History History of hand surgery Status post bronchoscopy Social History Smoking Status: Former smoker Smoking Status: Former smoker tobacco type: cigarettes alcohol intake frequency: 0-2 drinks per day Alcohol type: beer Substance Use Type: marijuana Exam Narrative Exam Narrative: GEN: well nourished, well appearing Male, alert and oriented x 3, patient appears to be in mild distress. HEENT: Atraumatic, pupils are equal round reactive to light, extraocular movements are intact, nares are clear, there is no conjunctival pallor. Throat is clear without any exudates, erythema, tonsillar enlargement or uvular deviation HEART: Regular rate and rhythm without murmur, clicks, rubs. LUNGS:Lungs clear to auscultation, no wheezes, rales, crackles, chest moves symmetrically ABD:bowel sounds normal, soft, non-tender, no guarding, rebound, rigidity, no masses noted, no hepatosplenomegaly, non-distended. :No CVA tenderness MSCL: Non-tender, no muscle atrophy, muscles strength 5/5 upper and lower extremities, full range of motion NEURO:CN 2-12 intact, sensation normal SKIN: No rash or skin changes appreciated. Initial Vital Signs Initial Vital Signs: Vital Signs Temperature 99.1 F 04/19/21 13:17 Pulse Rate 99 H 04/19/21 13:17 Respiratory Rate 22 04/19/21 13:17 Blood Pressure 135/71 04/19/21 13:17 Pulse Oximetry 95 04/19/21 13:17 Scores qSOFA Altered Mental Status (GCS <15): No Respiratory rate greater than/equal to 22: No Systolic blood pressure less than or equal to 100: No qSOFA Total: 0 0-1 Not High Risk 1-3 High risk Course Orders Ordered: ED Orders 04/19/21 13:28 EKG-12 Lead Stat 04/19/21 13:30 Complete Blood Count AUTO DIFF Stat Comprehensive Metabolic Panel Stat Lactate (Lactic Acid) Stat Lipase Stat Procalcitonin Stat 04/19/21 14:43 Urine Drug Screen, Rapid Stat Urine Microscopic Stat 04/19/21 15:32 Partial Thromboplastin Time Stat Prothrombin Time INR Stat 04/19/21 15:38 CT abdomen pelvis w con Stat 04/19/21 16:00 Blood Culture Stat Type and Screen Stat 04/19/21 16:11 Ethanol (ETOH) Stat Lactate (Lactic Acid) Stat 04/19/21 17:14 COVID19 - 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) Stat Magnesium Sulfate 2 gm/ Folic Acid 1 mg/ Thiamine HCl 100 mg / Multivitamins 10 ml/ Sodium Chloride 1,015.2 mls @ 125 mls/hr IV NOW ONE Stop: 04/20/21 02:26 Piperacillin Sod/Tazobactam (Sod 4.5 gm/ Sodium Chloride) 100 mls @ 25 mls/hr IV Q8H JOEY Metronidazole (Flagyl) 500 mg in 100 mls @ 100 mls/hr IV Q6H JOEY Lactated Ringer's (Lactated Ringers) 1,000 mls @ 150 mls/hr IV CONT JOEY Lorazepam (Lorazepam 2 Mg/Ml Inj) 1 mg IV Q4HR PRN PRN Reason: Anxiety Naloxone HCl (Naloxone 0.4 Mg/Ml Vial) 0.2 mg IV Q2MIN PRN PRN Reason: Opiate Reversal Ondansetron HCl (Ondansetron 4 Mg/2 Ml Inj) 4 mg IV Q4HR PRN PRN Reason: Nausea And Vomiting Pantoprazole Sodium (Pantoprazole 40 Mg Vial) 40 mg IV BID JOEY Sertraline HCl (Sertraline 50 Mg Tablet) 75 mg PO DAILY JOEY Discontinued Medications Sodium Chloride (Normal Saline 0.9%) 1,000 mls @ 1,000 mls/hr IV BOLUS ONE Stop: 04/19/21 14:39 Last Infusion: 04/19/21 14:38 Dose: 0 mls/hr Documented by: Admin: 04/19/21 13:41 Dose: 1,000 mls/hr Documented by: LUZMA Sodium Chloride (Normal Saline 0.9%) 1,000 mls @ 1,000 mls/hr IV BOLUS ONE Stop: 04/19/21 15:38 Last Infusion: 04/19/21 17:19 Dose: 0 mls/hr Documented by: Admin: 04/19/21 14:42 Dose: 1,000 mls/hr Documented by: JEF Lactated Ringer's (Lactated Ringers) 1,000 mls @ 1,000 mls/hr IV BOLUS ONE Stop: 04/19/21 17:17 Last Infusion: 04/19/21 18:09 Dose: 0 mls/hr Documented by: Infusion: 04/19/21 18:05 Dose: 0 mls/hr Documented by: Infusion: 04/19/21 17:19 Dose: 1,000 mls/hr Documented by: Infusion: 04/19/21 17:19 Dose: 0 mls/hr Documented by: Admin: 04/19/21 17:06 Dose: 1,000 mls/hr Documented by: OPHELIA Piperacillin Sod/Tazobactam (Sod 4.5 gm/ Sodium Chloride) 100 mls @ 200 mls/hr IV NOW ONE Stop: 04/19/21 16:21 Last Infusion: 04/19/21 17:51 Dose: 0 mls/hr Documented by: Admin: 04/19/21 17:10 Dose: 200 mls/hr Documented by: OPHELIA Metronidazole (Flagyl) 500 mg in 100 mls @ 100 mls/hr IV NOW ONE Stop: 04/19/21 18:41 Lorazepam (Lorazepam 2 Mg/Ml Inj) 0.5 mg IV NOW ONE Stop: 04/19/21 17:32 Last Admin: 04/19/21 17:50 Dose: 0.5 mg Documented by: OPHELIA Ondansetron HCl (Ondansetron 4 Mg/2 Ml Inj) 4 mg IV NOW ONE Stop: 04/19/21 13:41 Last Admin: 04/19/21 13:41 Dose: 4 mg Documented by: LUZMA Consultations Consultation #1: Dr. Charlton, case was discussed and Dr. Charlton saw the patient here in the department. Plan to admit the patient for observation to surgical service. He requested also a dose of Flagyl for possible C diff colitis. Rapid drug screen had been added on and ETOH was also added on as well as patient had shared that he drinks a bit more with Dr. Charlton that he shared with myself. Vital Signs Vital signs: Vital Signs - 8 hr 04/19/21 13:17 04/19/21 16:50 04/19/21 17:30 Temperature 99.1 F Pulse Rate 99 H 93 H 89 Respiratory Rate 22 16 16 Blood Pressure 135/71 122/60 125/65 Pulse Oximetry 95 96 99 MDM - Nausea/Vomiting/Diarrhea Lab Data Result diagrams: 04/19/21 13:30 04/19/21 13:30 Labs: Lab Results 04/19/21 04/19/21 04/19/21 Range/Units 13:30 13:30 13:30 WBC 16.7 H (4.5-11.0) X10^3/uL RBC 4.52 (4.5-5.9) X10^6/uL Hgb 14.4 (13.5-17.5) g/dL Hct 43.0 (41-53) % MCV 95.1 (80-100) fL MCH 32.0 (26-34) PG MCHC 33.6 (30-36) % RDW 12.0 (11.6-14.8) % Plt Count 311 (150-400) X10^3/uL Neut % (Auto) 83.2 H (50-75) % Lymph % (Auto) 10.6 L (25-40) % [place] % (Auto) 4.9 (3-14) % Eos % (Auto) 1.0 L (2-4) % Baso % (Auto) 0.3 (0-2) % Neut # (Auto) 86176 H (3804-8654) /uL Lymph # (Auto) 1800 (5442-5667) /uL [place] # (Auto) 800 (0-900) /uL Eos # (Auto) 200 (0-450) /uL Baso # (Auto) 0 (0-100) /uL PT (10.1-12.7) SECONDS INR (0.9-1.3) APTT (26.4-36.2) SECONDS Sodium 137 (137-145) mmol/L Potassium 3.6 (3.4-5.1) mmol/L Chloride 101 (98-107) mmol/L Carbon Dioxide 14 L (22-32) mmol/L BUN 15 (9-20) mg/dL Creatinine 0.83 (0.66-1.25) mg/dL Estimated GFR > 60.0 (>60) mL/min BUN/Creatinine Ratio 18.1 (6-22) Glucose 82 (70-100) mg/dL Lactate 7.6 H* (0.7-2.1) mmol/L Calcium 9.1 (8.4-10.2) mg/dL Total Bilirubin 1.0 (0.2-1.3) mg/dL AST 66 H (17-59) IU/L ALT 41 (<50) IU/L Alkaline Phosphatase 101 (38-126) U/L Total Protein 8.0 (6.3-8.2) g/dL Albumin 5.0 (3.5-5.0) g/dL Globulin 3.0 (1.7-4.1) g/dL Albumin/Globulin Ratio 1.7 (1.0-2.8) Lipase 75 (23-300) U/L Procalcitonin (<0.5) ng/mL Urine RBC (0-5/HPF) Urine WBC (0-5/HPF) Ur Squamous Epith Cells (0-5/HPF) Urine Bacteria (None) Ur Culture Indicated? U Opiates 300ng/mL cut (Negative) Ur Oxycodone Screen (Negative) Urine Methadone Screen (Negative) Ur Barbiturates Screen (Negative) U Tricyclic Antidepress (Negative) Ur Phencyclidine Scrn (Negative) Ur Amphetamines Screen (Negative) U Methamphetamines Scrn (Negative) Ur MDMA Scrn (Ecstasy) (Negative) U Benzodiazepines Scrn (Negative) Urine Cocaine Screen (Negative) U Marijuana (THC) Screen (Negative) Ethyl Alcohol ( - 10) mg/dL SARS-CoV-2 (PCR) (Negative) 04/19/21 04/19/21 04/19/21 Range/Units 13:30 14:43 14:43 WBC (4.5-11.0) X10^3/uL RBC (4.5-5.9) X10^6/uL Hgb (13.5-17.5) g/dL Hct (41-53) % MCV (80-100) fL MCH (26-34) PG MCHC (30-36) % RDW (11.6-14.8) % Plt Count (150-400) X10^3/uL Neut % (Auto) (50-75) % Lymph % (Auto) (25-40) % [place] % (Auto) (3-14) % Eos % (Auto) (2-4) % Baso % (Auto) (0-2) % Neut # (Auto) (9741-3392) /uL Lymph # (Auto) (9210-4455) /uL [place] # (Auto) (0-900) /uL Eos # (Auto) (0-450) /uL Baso # (Auto) (0-100) /uL PT (10.1-12.7) SECONDS INR (0.9-1.3) APTT (26.4-36.2) SECONDS Sodium (137-145) mmol/L Potassium (3.4-5.1) mmol/L Chloride (98-107) mmol/L Carbon Dioxide (22-32) mmol/L BUN (9-20) mg/dL Creatinine (0.66-1.25) mg/dL Estimated GFR (>60) mL/min BUN/Creatinine Ratio (6-22) Glucose (70-100) mg/dL Lactate (0.7-2.1) mmol/L Calcium (8.4-10.2) mg/dL Total Bilirubin (0.2-1.3) mg/dL AST (17-59) IU/L ALT (<50) IU/L Alkaline Phosphatase (38-126) U/L Total Protein (6.3-8.2) g/dL Albumin (3.5-5.0) g/dL Globulin (1.7-4.1) g/dL Albumin/Globulin Ratio (1.0-2.8) Lipase (23-300) U/L Procalcitonin 0.05 (<0.5) ng/mL Urine RBC 1-5/hpf (0-5/HPF) Urine WBC 1-5/hpf (0-5/HPF) Ur Squamous Epith Cells 5-10 /hpf H (0-5/HPF) Urine Bacteria None seen (None) Ur Culture Indicated? Cult not indicated U Opiates 300ng/mL cut Negative (Negative) Ur Oxycodone Screen Negative (Negative) Urine Methadone Screen Negative (Negative) Ur Barbiturates Screen Negative (Negative) U Tricyclic Antidepress Negative (Negative) Ur Phencyclidine Scrn Negative (Negative) Ur Amphetamines Screen Negative (Negative) U Methamphetamines Scrn Negative (Negative) Ur MDMA Scrn (Ecstasy) Negative (Negative) U Benzodiazepines Scrn Negative (Negative) Urine Cocaine Screen Negative (Negative) U Marijuana (THC) Screen Positive H (Negative) Ethyl Alcohol ( - 10) mg/dL SARS-CoV-2 (PCR) (Negative) 04/19/21 04/19/21 04/19/21 Range/Units 15:32 16:11 16:11 WBC (4.5-11.0) X10^3/uL RBC (4.5-5.9) X10^6/uL Hgb (13.5-17.5) g/dL Hct (41-53) % MCV (80-100) fL MCH (26-34) PG MCHC (30-36) % RDW (11.6-14.8) % Plt Count (150-400) X10^3/uL Neut % (Auto) (50-75) % Lymph % (Auto) (25-40) % [place] % (Auto) (3-14) % Eos % (Auto) (2-4) % Baso % (Auto) (0-2) % Neut # (Auto) (2530-4355) /uL Lymph # (Auto) (9089-4097) /uL [place] # (Auto) (0-900) /uL Eos # (Auto) (0-450) /uL Baso # (Auto) (0-100) /uL PT 11.4 (10.1-12.7) SECONDS INR 1.0 (0.9-1.3) APTT 26 L (26.4-36.2) SECONDS Sodium (137-145) mmol/L Potassium (3.4-5.1) mmol/L Chloride (98-107) mmol/L Carbon Dioxide (22-32) mmol/L BUN (9-20) mg/dL Creatinine (0.66-1.25) mg/dL Estimated GFR (>60) mL/min BUN/Creatinine Ratio (6-22) Glucose (70-100) mg/dL Lactate 3.7 H (0.7-2.1) mmol/L Calcium (8.4-10.2) mg/dL Total Bilirubin (0.2-1.3) mg/dL AST (17-59) IU/L ALT (<50) IU/L Alkaline Phosphatase (38-126) U/L Total Protein (6.3-8.2) g/dL Albumin (3.5-5.0) g/dL Globulin (1.7-4.1) g/dL Albumin/Globulin Ratio (1.0-2.8) Lipase (23-300) U/L Procalcitonin (<0.5) ng/mL Urine RBC (0-5/HPF) Urine WBC (0-5/HPF) Ur Squamous Epith Cells (0-5/HPF) Urine Bacteria (None) Ur Culture Indicated? U Opiates 300ng/mL cut (Negative) Ur Oxycodone Screen (Negative) Urine Methadone Screen (Negative) Ur Barbiturates Screen (Negative) U Tricyclic Antidepress (Negative) Ur Phencyclidine Scrn (Negative) Ur Amphetamines Screen (Negative) U Methamphetamines Scrn (Negative) Ur MDMA Scrn (Ecstasy) (Negative) U Benzodiazepines Scrn (Negative) Urine Cocaine Screen (Negative) U Marijuana (THC) Screen (Negative) Ethyl Alcohol 10 ( - 10) mg/dL SARS-CoV-2 (PCR) (Negative) 04/19/21 Range/Units 17:14 WBC (4.5-11.0) X10^3/uL RBC (4.5-5.9) X10^6/uL Hgb (13.5-17.5) g/dL Hct (41-53) % MCV (80-100) fL MCH (26-34) PG MCHC (30-36) % RDW (11.6-14.8) % Plt Count (150-400) X10^3/uL Neut % (Auto) (50-75) % Lymph % (Auto) (25-40) % [place] % (Auto) (3-14) % Eos % (Auto) (2-4) % Baso % (Auto) (0-2) % Neut # (Auto) (0866-2760) /uL Lymph # (Auto) (8929-9088) /uL [place] # (Auto) (0-900) /uL Eos # (Auto) (0-450) /uL Baso # (Auto) (0-100) /uL PT (10.1-12.7) SECONDS INR (0.9-1.3) APTT (26.4-36.2) SECONDS Sodium (137-145) mmol/L Potassium (3.4-5.1) mmol/L Chloride (98-107) mmol/L Carbon Dioxide (22-32) mmol/L BUN (9-20) mg/dL Creatinine (0.66-1.25) mg/dL Estimated GFR (>60) mL/min BUN/Creatinine Ratio (6-22) Glucose (70-100) mg/dL Lactate (0.7-2.1) mmol/L Calcium (8.4-10.2) mg/dL Total Bilirubin (0.2-1.3) mg/dL AST (17-59) IU/L ALT (<50) IU/L Alkaline Phosphatase (38-126) U/L Total Protein (6.3-8.2) g/dL Albumin (3.5-5.0) g/dL Globulin (1.7-4.1) g/dL Albumin/Globulin Ratio (1.0-2.8) Lipase (23-300) U/L Procalcitonin (<0.5) ng/mL Urine RBC (0-5/HPF) Urine WBC (0-5/HPF) Ur Squamous Epith Cells (0-5/HPF) Urine Bacteria (None) Ur Culture Indicated? U Opiates 300ng/mL cut (Negative) Ur Oxycodone Screen (Negative) Urine Methadone Screen (Negative) Ur Barbiturates Screen (Negative) U Tricyclic Antidepress (Negative) Ur Phencyclidine Scrn (Negative) Ur Amphetamines Screen (Negative) U Methamphetamines Scrn (Negative) Ur MDMA Scrn (Ecstasy) (Negative) U Benzodiazepines Scrn (Negative) Urine Cocaine Screen (Negative) U Marijuana (THC) Screen (Negative) Ethyl Alcohol ( - 10) mg/dL SARS-CoV-2 (PCR) Negative (Negative) Urine Dip Bedside Urine Glucose Negative Bedside Urine Bilirubin - Negative Bedside Urine Ketone +++ 80 Urine Specific [place] 1.030 Bedside Urine Occult Blood - Negative Bedside Urine pH 6 Bedside Urine Protein +/- 15 Bedside Urine Urobilinogen - Negative Bedside Urine Nitrite - Negative Bedside Urine Leukocytes - Negative Esterase Imaging Data CT scan - abdomen/pelvis: Radiologist's Impression: [address] [id number] Scan ReportSigned Patient: Ronald Tan SMR#: [id number]: 1995Acct:[id number]/Sex: 25 / MDate of Service: 04/19/21Loc: EDAccession Number: [id number] Procedure: CT abdomen pelvis w con Ordering Provider: Maria Elena Langley D.O. PROCEDURE: CT ABDOMEN PELVIS W CON INDICATIONS: near syncope, intermittent vomiting, ? hematemesis TECHNIQUE: After the administration of intravenous contrast, axial sections acquired from the lung bases to the pubic symphysis. Coronal and sagittal reformats were performed. For radiation dose reduction, the following was used: automated exposure control, adjustment of mA and/or kV according to patient size. COMPARISON: [facility], CT, ABDOMEN/PELVIS WITH CONTRAST, 12/11/2014, 21:10. FINDINGS: Image quality: Excellent. Lung bases: No acute airspace opacities. No pleural effusions. Heart: Normal in size. ABDOMEN: Liver: There is diffuse hypoattenuation consistent with fatty infiltration. Gallbladder: Within normal limits without calcified gallstones. Biliary ducts: Unremarkable. Pancreas: Unremarkable. Spleen: Unremarkable. Adrenal Glands: Unremarkable. Kidneys and Ureters: Unremarkable. Stomach and Bowel: Stomach and small bowel loops are normal in caliber and wall thickness. The appendix is normal in appearance. There is mild wall thickening throughout the colon with mucosal enhancement and mild pericolonic fat stranding consistent with a colitis. There are few colonic diverticula without acute diverticulitis. Peritoneum: No abnormal intraperitoneal fluid. No free air. Ventral Wall: No hernias. Abdominal Nodes: No retroperitoneal or mesenteric adenopathy by size criteria. Vessels: Aorta and inferior vena cava are normal in size. PELVIS: Pelvic Organs: Unremarkable. Bladder: Unremarkable. Pelvic Nodes: No enlarged lymph nodes. Miscellaneous: No hernias are seen. Bones: Unremarkable. IMPRESSION: 1. Diffuse colonic wall thickening consistent with a quintero-colitis, likely infectious or inflammatory. 2. Hepatic steatosis. Dictated by: Ezra Montero M.D. on 04/19/2021 at 16:07 Approved by: Ezra Montero M.D. on 04/19/2021 at 16:14 ECG Data Prior ECG tracings: available for review Interpretation: Normal sinus rhythm rate of 95, DE interval 134 QRS of 96 and QTC of 469. No acute ST elevation depression appreciated. Patient has prior EKG from 03/29/2020 which appears similar. MDM Narrative Medical decision making narrative: This is a 25-year-old male who comes in with complaint of hematemesis, dizziness and near syncope. Patient states he has had intermittent nausea and vomiting in the morning for some time. He has a history of ulcers according to him and his mother. He did state he had a nosebleed this morning. He was throwing up dark red blood so this may have been a source but patient also has some abdominal discomfort. His CO2 level was 14 and he does have a leukocytosis. Lactate was included and CT abdomen pelvis was obtained. Patient's vitals here do show mild tachycardia with a pulse of 99, patient has not been hypotensive or febrile. Initial lactate was significantly elevated and repeat after a L and half fluid had improved to 3.7 but is still quite elevated. Patient was started on Zosyn, cultures were obtained. Procalcitonin is negative. Patient's vital signs are improved from his initial set. CT abdomen pelvis shows possible colitis but also hepatic changes. Discussed with General surgery who saw the patient here in the department. There was some suspicion that patient may ingest alcohol or other substances more frequently. Patient did request Ativan here in the department and this was given as I suspect there may be a potential for withdrawal. Patient received Zosyn and Flagyl as well as 3 L of fluid total. Discharge Plan Departure Patient Disposition: Admitted as Observation Clinical Impression: Colitis Admit Date/Time: 04/19/21 17:30 Admit Provider: Isaias Charlton
[2021-04-19 15:20] LABS: Bacteria Urine None Seen
[2021-04-19 15:31] LABS: RBC Urine 1-5/HPF (0-5/HPF); WBC Urine 1-5/HPF (0-5/HPF)
[2021-04-19 15:32] LABS: Culture Indicated Urine Cult Not Indicated; Squamous Epithelial Cell Urine 5-10 /HPF (0-5/HPF)
--- NOTE | 2021-04-19 15:38 | DI.CT.S_ITS ---
PROCEDURE: CT ABDOMEN PELVIS W CON INDICATIONS: near syncope, intermittent vomiting, ? hematemesis TECHNIQUE: After the administration of intravenous contrast, axial sections acquired from the lung bases to the pubic symphysis. Coronal and sagittal reformats were performed. For radiation dose reduction, the following was used: automated exposure control, adjustment of mA and/or kV according to patient size. COMPARISON: [facility], CT, ABDOMEN/PELVIS WITH CONTRAST, 12/11/2014, 21:10. FINDINGS: Image quality: Excellent. Lung bases: No acute airspace opacities. No pleural effusions. Heart: Normal in size. ABDOMEN: Liver: There is diffuse hypoattenuation consistent with fatty infiltration. Gallbladder: Within normal limits without calcified gallstones. Biliary ducts: Unremarkable. Pancreas: Unremarkable. Spleen: Unremarkable. Adrenal Glands: Unremarkable. Kidneys and Ureters: Unremarkable. Stomach and Bowel: Stomach and small bowel loops are normal in caliber and wall thickness. The appendix is normal in appearance. There is mild wall thickening throughout the colon with mucosal enhancement and mild pericolonic fat stranding consistent with a colitis. There are few colonic diverticula without acute diverticulitis. Peritoneum: No abnormal intraperitoneal fluid. No free air. Ventral Wall: No hernias. Abdominal Nodes: No retroperitoneal or mesenteric adenopathy by size criteria. Vessels: Aorta and inferior vena cava are normal in size. PELVIS: Pelvic Organs: Unremarkable. Bladder: Unremarkable. Pelvic Nodes: No enlarged lymph nodes. Miscellaneous: No hernias are seen. Bones: Unremarkable. IMPRESSION: 1. Diffuse colonic wall thickening consistent with a quintero-colitis, likely infectious or inflammatory. 2. Hepatic steatosis. Dictated by: Ezra Montero M.D. on 04/19/2021 at 16:07 Approved by: Ezra Montero M.D. on 04/19/2021 at 16:14
[2021-04-19 15:45] LABS: Prothrombin Time 11.4 SECONDS (10.1-12.7)
[2021-04-19 15:48] LABS: PTT Partial Thromboplastin Tim 26 SECONDS (26.4-36.2)
[2021-04-19 15:49] LABS: Lactate (Lactic Acid) 7.6 mmol/L (0.7-2.1)
[2021-04-19 16:20] LABS: Procalcitonin 0.05 ng/mL (<0.5)
[2021-04-19 16:42] LABS: Lactate (Lactic Acid) 3.7 mmol/L (0.7-2.1)
[2021-04-19] MEDS: LACTATED RINGERS 1,000 ML 1000 ML IV (17:06)
[2021-04-19] MEDS: PIPERACILLIN/TAZO 4.5 GM in SODIUM CHLORIDE 0.9% 100 ML 200 ML IV (17:10)
[2021-04-19 17:23] LABS: Reflexed Lactate in 2 Hours Y
[2021-04-19 17:29] LABS: Ethanol (ETOH) 10 mg/dL
[2021-04-19 17:31] LABS: UR Morphine/Opiate cutoff 300 Negative (Negative); Ur Creatinine Normal (Normal); Ur Specific Gravity Normal (Normal); Urine Amphetamines Negative (Negative); Urine Cocaine Negative (Negative); Urine Tetrahydrocannabinol Positive (Negative); Urine pH Normal (Normal)
[2021-04-19 17:32] LABS: Urine Barbiturates Negative (Negative); Urine Benzodiazepines Negative (Negative); Urine MDMA Negative (Negative); Urine Methadone Negative (Negative); Urine Methamphetamines Negative (Negative); Urine Oxycodone Negative (Negative); Urine Phencyclidine Negative (Negative); Urine Tricyclic Antidepressant Negative (Negative)
--- NOTE | 2021-04-19 17:45 | PM.HP.1 ---
History of Present Illness History of Present Illness Chief complaint: threw up blood then passed out Narrative: The patient is a 25-year-old who had a nose bleed which occurs periodically. He denies swallowing any blood. Sometime after that he vomited material that included blood. The patient admits to drinking 3-5 beers a day. He complains of diffuse not feeling well in his abdomen but can not pinpoint pain. He has had diarrhea for a prolonged period those difficult to pin down exactly how long long that is. It is at least months. It has become so routine for him that he figures this is his normal. He has 2 loose bowel movements a day. He denies having blood in his stool. He did have a colonoscopy several years ago for similar symptoms according to his mother who is with him. No family history of inflammatory bowel disease. He denies use of any illegal drugs. He uses marijuana probably daily in the evening. He does suffer from panic attacks. He feels as though the addition of Zoloft to his medications may have caused some of his GI symptoms. Patient History Medical History Conjunctivitis Corneal abrasion Depression (01/26/15) Nasal contusion Rash (01/26/15) Surgical History History of hand surgery Status post bronchoscopy Family & Social History Tobacco & Substance use: Smoking Status Former smoker alcohol intake frequency 0-2 drinks per day Substance Use Type marijuana Meds Home Medications and Allergies Home Medications Medication Instructions Recorded Confirmed Type sertraline 25 mg tablet 75 mg PO DAILY 06/13/20 04/19/21 History Allergies Allergy/AdvReac Type Severity Reaction Status Date / Time neomycin Allergy Mild Verified 04/19/21 17:45 [From Neosporin ([id number])] polymyxin B Allergy Mild Verified 04/19/21 17:45 [From Neosporin ([id number])] Review of Systems Review of Systems Narrative: Patient has no cough or cold. No breathing issues at this time. No heart problems that he is aware of. No murmurs. He may have blacked out recently during a panic attack. No blood in his urine or kidney stones in the past. No chronic joint or muscle pain. Exam Vital Signs (past 8 hours): - 04/19/21 13:17 04/19/21 16:50 Temperature 99.1 F Pulse Rate 99 H 93 H Respiratory Rate 22 16 Blood Pressure 135/71 122/60 Pulse Oximetry 95 96 Oxygen Delivery Method Room Air Narrative Exam Narrative: Cooperative but anxious appearing gentleman it was a little bit agitated at times during the interview. No obvious distress from pain. His eyes are nonicteric. Pupils are very dilated. Oral mucosa is pink no open lesions. Teeth are intact. There are no nodes in the neck or supraclavicular areas. Trachea is midline mobile. Thyroid is not enlarged. Lungs are clear to auscultation without rales or rhonchi. Heart regular rate and rhythm without murmur gallop. No heave lift or thrill. Abdomen is scaphoid and soft. There is no guarding. No obvious tenderness. No hernias are appreciated. He is alert oriented. Sometimes invasive on answering questions. 2+ texture and turgor in his skin. No open lesions appreciated. Normal adult hair pattern. Objective Labs Result Diagrams: 04/19/21 13:30 04/19/21 13:30 Labs: Laboratory Results - last 24 hr 04/19/21 04/19/21 04/19/21 13:30 13:30 13:30 WBC 16.7 H RBC 4.52 Hgb 14.4 Hct 43.0 MCV 95.1 MCH 32.0 MCHC 33.6 RDW 12.0 Plt Count 311 Neut % (Auto) 83.2 H Lymph % (Auto) 10.6 L Ritchie % (Auto) 4.9 Eos % (Auto) 1.0 L Baso % (Auto) 0.3 Neut # (Auto) 00051 H Lymph # (Auto) 1800 Ritchie # (Auto) 800 Eos # (Auto) 200 Baso # (Auto) 0 PT INR APTT Sodium 137 Potassium 3.6 Chloride 101 Carbon Dioxide 14 L BUN 15 Creatinine 0.83 Estimated GFR > 60.0 BUN/Creatinine Ratio 18.1 Glucose 82 Lactate 7.6 H* Calcium 9.1 Total Bilirubin 1.0 AST 66 H ALT 41 Alkaline Phosphatase 101 Total Protein 8.0 Albumin 5.0 Globulin 3.0 Albumin/Globulin Ratio 1.7 Lipase 75 Procalcitonin Urine RBC Urine WBC Ur Squamous Epith Cells Urine Bacteria Ur Culture Indicated? U Opiates 300ng/mL cut Ur Oxycodone Screen Urine Methadone Screen Ur Barbiturates Screen U Tricyclic Antidepress Ur Phencyclidine Scrn Ur Amphetamines Screen U Methamphetamines Scrn Ur MDMA Scrn (Ecstasy) U Benzodiazepines Scrn Urine Cocaine Screen U Marijuana (THC) Screen Ethyl Alcohol 04/19/21 04/19/21 04/19/21 13:30 14:43 14:43 WBC RBC Hgb Hct MCV MCH MCHC RDW Plt Count Neut % (Auto) Lymph % (Auto) Ritchie % (Auto) Eos % (Auto) Baso % (Auto) Neut # (Auto) Lymph # (Auto) Ritchie # (Auto) Eos # (Auto) Baso # (Auto) PT INR APTT Sodium Potassium Chloride Carbon Dioxide BUN Creatinine Estimated GFR BUN/Creatinine Ratio Glucose Lactate Calcium Total Bilirubin AST ALT Alkaline Phosphatase Total Protein Albumin Globulin Albumin/Globulin Ratio Lipase Procalcitonin 0.05 Urine RBC 1-5/hpf Urine WBC 1-5/hpf Ur Squamous Epith Cells 5-10 /hpf H Urine Bacteria None seen Ur Culture Indicated? Cult not indicated U Opiates 300ng/mL cut Negative Ur Oxycodone Screen Negative Urine Methadone Screen Negative Ur Barbiturates Screen Negative U Tricyclic Antidepress Negative Ur Phencyclidine Scrn Negative Ur Amphetamines Screen Negative U Methamphetamines Scrn Negative Ur MDMA Scrn (Ecstasy) Negative U Benzodiazepines Scrn Negative Urine Cocaine Screen Negative U Marijuana (THC) Screen Positive H Ethyl Alcohol 04/19/21 04/19/21 04/19/21 15:32 16:11 16:11 WBC RBC Hgb Hct MCV MCH MCHC RDW Plt Count Neut % (Auto) Lymph % (Auto) Ritchie % (Auto) Eos % (Auto) Baso % (Auto) Neut # (Auto) Lymph # (Auto) Ritchie # (Auto) Eos # (Auto) Baso # (Auto) PT 11.4 INR 1.0 APTT 26 L Sodium Potassium Chloride Carbon Dioxide BUN Creatinine Estimated GFR BUN/Creatinine Ratio Glucose Lactate 3.7 H Calcium Total Bilirubin AST ALT Alkaline Phosphatase Total Protein Albumin Globulin Albumin/Globulin Ratio Lipase Procalcitonin Urine RBC Urine WBC Ur Squamous Epith Cells Urine Bacteria Ur Culture Indicated? U Opiates 300ng/mL cut Ur Oxycodone Screen Urine Methadone Screen Ur Barbiturates Screen U Tricyclic Antidepress Ur Phencyclidine Scrn Ur Amphetamines Screen U Methamphetamines Scrn Ur MDMA Scrn (Ecstasy) U Benzodiazepines Scrn Urine Cocaine Screen U Marijuana (THC) Screen Ethyl Alcohol 10 Assessment & Plan Assessment and plan (1) Hematemesis with nausea: Status: Acute (2) Colitis: Status: Acute (3) Anxiety disorder: Status: Acute Assessment & Plan narrative: Patient with an elevated white blood cell count and elevated lactate but without findings to suggest a distinct source. I suspect it is related to his colon. His CT scan suggest the presence of quintero colitis. There is diffuse thickening of the colon. He has a long history of diarrhea and this may be related to a GI pathogen. I am a little concerned that he could have C difficile. But there is certainly other causes. Given his elevated lactate and white count will begin him on broad-spectrum antibiotics and specifically add Flagyl should there be C difficile as a cause. We will test is stool when available. Continue IV fluids. Because of his alcohol use will give him a banana bag. Will also plan to do an upper GI scope on him due to the history of hematemesis to rule out ulcer disease versus gastritis. Will begin proton pump inhibitors. Treat his anxiety with Ativan. Continue his Zoloft. Keep NPO other than meds for now. He had an apple her earlier prior to coming to the ER so we will wait to do the EGD until tomorrow. Will recheck his labs and continue to of re-evaluate his lactate which has come down markedly with simple hydration. Patient is not thrilled about coming to the hospital and I am concerned that he could decide to leave prematurely. I will hold any DVT prophylaxis that includes blood thinning due to his history of hematemesis. Will place sequential compression devices on his legs.
[2021-04-19] MEDS: LORazepam 2 MG/ML INJ 0.5 MG IV (17:50)
[2021-04-19 18:21] LABS: COVID19 - ADMIT (NP swab/PCR) Negative (Negative)
[2021-04-19 18:32] LABS: Reflexed Lactate in 2 Hours Y
[2021-04-19] MEDS: metroNIDAZOLE 500 MG/100 ML PIGGYBACK 100 MG IV (18:55)
[2021-04-19] MEDS: LACTATED RINGERS 1,000 ML 150 ML IV (18:55)
[2021-04-19] MEDS: MAGNESIUM SULFATE 2 GM, FOLIC ACID 1 MG, THIAMINE 100 MG, MULTIVITAMIN 10 ML in SODIUM ... IV (18:55)
[2021-04-19] MEDS: PANTOPRAZOLE 40 MG VIAL IV (22:00)
[2021-04-19] MEDS: PIPERACILLIN/TAZO 4.5 GM in SODIUM CHLORIDE 0.9% 100 ML 25 ML IV (22:07)
[2021-04-19 23:11] LABS: Lactate (Lactic Acid) 0.8 mmol/L (0.7-2.1)
[2021-04-20] VITALS (12 sets, daily range): BP systolic 119–148; BP diastolic 59–94; PULSE 80–100; RESP 10–20; TEMP 36.3–37.4; O2SAT 95–100; BMI 26.6
--- NOTE | 2021-04-20 | PATH_ITS ---
[facility] [place] Accession Number: [id number] . 01 Material submitted: . gastrointestinal site - RANDOM STOMACH BIOPSIES . 01 Clinical history: . THREW UP BLOOD THEN PASSED OUT . 02 Diagnosis: Random Stomach Biopsies: Portions of gastric antral and body-type mucosa with mild chronic inflammation. Negative for Helicobacter organisms by immunohistochemistry. Negative for intestinal metaplasia. Negative for dysplasia or malignancy. MRV 04/27/2021 1352 Local . 02 Electronically signed: . Hannah Morales MD, Pathologist NPI- [id number] . 01 Gross description: . RANDOM STOMACH BIOPSIES: Received in formalin are multiple fragment(s) of meeks, soft tissue measuring 0.8 x 0.6 x 0.2 cm in aggregate submitted entirely in 1 cassette(s) /GILLES 04/21/2021 0318 Local . 02 Microscopic: . An immunohistochemical stain was performed to evaluate for Helicobacter organisms and is negative. The control stain showed appropriate reactivity. . * This test was developed and its performance characteristics determined by [facility]. It has not been cleared or approved by the U.S. Food and Drug Administration. The FDA has determined that such clearance or approval is not necessary. This test is used for clinical purposes. It should not be regarded as investigational or for research. . 02 Pathologist provided ICD-10: K92.0 . 02 CPT . 571463, [id number] Performed at: 01 [facility] [address], [place], [place] [id number] MD Ezra Johns MD Phone: [phone] Performed at: 02 [facility] [address] [place], [place] [id number] MD Peri Thorpe MD Phone: [phone]
[2021-04-20] MEDS: metroNIDAZOLE 500 MG/100 ML PIGGYBACK 100 MG IV ×3 (01:00→13:29)
[2021-04-20 05:38] LABS: Add Manual Diff / Slide Review NO; Basophils Absolute Auto 100 /uL (0-100); Basophils Percent Auto 0.7 % (0-2); Eosinophils Absolute Auto 200 /uL (0-450); Eosinophils Percent Auto 3.2 % (2-4); Hematocrit 38.6 % (41-53); Hemoglobin 13.2 g/dL (13.5-17.5); Lymphocytes Absolute Auto 1900 /uL (1100-4500); Lymphocytes Percent Auto 24.1 % (25-40); Mean Corpuscular HGB Conc 34.2 % (30-36); Mean Corpuscular Hemoglobin 32.4 PG (26-34); Mean Corpuscular Volume 94.7 fL (80-100); Monocytes Absolute Auto 700 /uL (0-900); Monocytes Percent Auto 8.5 % (3-14); Neutrophils Absolute Auto 4900 /uL (1500-7000); Neutrophils Percent Auto 63.5 % (50-75); Platelet Count 219 X10^3/uL (150-400); Red Blood Cell Count 4.08 X10^6/uL (4.5-5.9); Red Cell Distribution Width 11.7 % (11.6-14.8); White Blood Cell Count 7.8 X10^3/uL (4.5-11.0)
[2021-04-20 05:52] LABS: Alanine Aminotransferase 32 IU/L (<50); Albumin 3.7 g/dL (3.5-5.0); Albumin Globulin Ratio 1.5 (1.0-2.8); Alkaline Phosphatase 63 U/L (38-126); Aspartate Aminotransferase 41 IU/L (17-59); Bilirubin Total 1.7 mg/dL (0.2-1.3); Blood Urea Nitrogen 8 mg/dL (9-20); Calcium 8.1 mg/dL (8.4-10.2); Carbon Dioxide 20 mmol/L (22-32); Chloride 105 mmol/L (98-107); Estimated Glomerular Filt Rate > 60.0 mL/min (>60); Globulin 2.4 g/dL (1.7-4.1); Glucose 67 mg/dL (70-100); HEMOLYSIS < 15 (0-50); Potassium 3.7 mmol/L (3.4-5.1); Sodium 136 mmol/L (137-145); Total Protein 6.1 g/dL (6.3-8.2)
[2021-04-20] MEDS: PIPERACILLIN/TAZO 4.5 GM in SODIUM CHLORIDE 0.9% 100 ML 25 ML IV ×2 (05:56→13:28)
[2021-04-20] MEDS: PANTOPRAZOLE 40 MG VIAL IV (08:22)
--- NOTE | 2021-04-20 11:47 | PM.PREOP ---
Pre-operative Note COVID-19 COVID-19 status: Negative Result date/Date tested (Pos, Neg/Pending): 04/19/21 Interval Note History & Physical reviewed/Exam performed by Physician: Yes Changes to H&P: No ASA Class (for procedural sedation): I
[2021-04-20] MEDS: fentaNYL 250 MCG/5 ML INJ IV (12:01)
[2021-04-20] MEDS: MIDAZOLAM 5 MG/5 ML VIAL IV (12:01)
[2021-04-20] MEDS: LIDOCAINE 4% SOLN 50 ML 20 ML TOP (12:09)
--- NOTE | 2021-04-20 12:09 | PM.OP.ENDO ---
Operative Date/Time/Diagnoses Date of procedure: 04/20/21 Time of procedure: 12:10 Pre-op diagnosis: Hematemesis Post-op diagnosis: same (Diffuse gastritis mild probably related to alcohol use) Procedure & Clinicians Study performed: EGD with cold biopsy Same procedure as scheduled: Yes Indications: Determine cause of hematemesis Surgeon: Isaias Charlton Procedure Notes SCOAP/Timeout: Performed Procedure in detail: Patient was placed in left lateral decubitus position underwent IV sedation. This was initially directed by the surgeon but when we reached a level of 250 mcg of fentanyl and foot I have mg of Versed and the patient was still quite alert I decided to intervene with an anesthesiologist to could provide monitored anesthesia care to enable us to perform this procedure safely and with comfort of the patient. A bite block was inserted. The scope was advanced through it into the esophagus. The esophagus was normal in appearance. No evidence of varices. GE junction at 42 cm from the incisors. The stomach insufflated well. It was diffusely red no cobblestoning was noted. There were no ulcers. No blood in the upper tract. The pyloric channel was patent. Duodenum was normal the 4th part. There is no evidence of inflammation of the duodenum. The scope was brought back into the stomach and retroflexed. Proximal stomach was normal except for being in mildly inflamed. Biopsies were taken randomly of the stomach to rule out H pylori or other causes of gastritis. Scope was then removed and the patient will tolerated the procedure well. He awoke and was taken the recovery room good condition. Scope withdrawal time: Not applicable Sedation minutes: 10 (Remainder of time it was used by Anesthesia to provide deep sedation//monitored anesthesia care.) Findings: gastritis Specimen(s): other (Random stomach biopsies) Complications: none Post-procedure Plan for aftercare: Continue proton pump inhibitors orally. Follow up: weeks (one) Disposition: PACU
--- NOTE | 2021-04-20 12:30 | SUR.PHASEI ---
Assumed care of pt at this time. DINA Hatch stated pt arrived awakened soon after.
--- NOTE | 2021-04-20 12:43 | SUR.PHASEI ---
Stable PACU stay report attempted to Deborah, nurse unavailable, will call back.
--- NOTE | 2021-04-20 12:45 | SUR.PHASEI ---
1225- Report given to pacu nurse
--- NOTE | 2021-04-20 13:25 | SUR.PHASEI ---
Pt transported up to room 218 and left in stable condition with DINA Cabrera
--- NOTE | 2021-04-20 16:06 | CM.DANOTE ---
DCP ASSESSMENT: Patient is a 25 year-old male admitted for GI bleed. PCP Chente Benz. Primary payer [facility] and Medicaid. Patient is pending a colonoscopy at 11 am 04/20/21. METAL SPONGE MAKING MACHINE OPERATOR Student met with patient at bedside he is alert and oriented, mother was also present in room. METAL SPONGE MAKING MACHINE OPERATOR provided education on social work role in discharge planning. Patient is independent with ADL?s at baseline. Patient endorsed feeling anxious about procedure and wanting to go home but, has trust in the doctor. PLAN: Anticipate D/C home. CM Team to continue to follow. DEISY Rowell MSW Student Discharge Planning/Care Management CM Discharge Assessment Start: 04/20/21 11:18 Freq: Status: Active Protocol: Document 04/20/21 11:19 AL (Rec: 04/20/21 11:21 AL [id number]) Discharge Planning Assessment Assigned Manual Control Auger Press Operator DEISY Pringle Student Contact Information Rodolfo Sylvester, mother [phone] Advance Directives? No History Provided By Patient,Medical Record Has Patient been admitted in last 30 No days? Prior Living Arrangements House Household Members family Type of transporation used prior to Drives own vehicle admit Independent with ADL's Yes Is patient alert and oriented? Yes Caregiver for Another No Barriers to Discharge No Transportation Arrangement Mother will provide transportation at time of D/C Referrals Initiated None needed Whiteboard Updated in Patient Room with Yes name and ext. # of Manual Control Auger Press Operator Review Status In Process
[2021-04-20 17:32] LABS: Adenovirus F 40/41 Not Detected (Not Detect); Astrovirus Not Detected (Not Detect); Campylobacter Not Detected (Not Detect); Clostridium difficile toxin AB Not Detected (Not Detect); Cryptosporidium Not Detected (Not Detect); Cyclospora cayetanensis Not Detected (Not Detect); Entamoeba histolytica Not Detected (Not Detect); Enteroaggregative E.coli Not Detected (Not Detect); Enteropathogenic E.coli Not Detected (Not Detect); Enterotoxigenic E.coli It/st Not Detected (Not Detect); Giardia lamblia Not Detected (Not Detect); Norovirus GI/GII Not Detected (Not Detect); Plesiomonsa shigelloides Not Detected (Not Detect); Rotavirus A Not Detected (Not Detect); Salmonella Not Detected (Not Detect); Sapovirus Not Detected (Not Detect); Shiga-like toxin-prod E.coli Not Detected (Not Detect); Shigella/Enteroinvasive E.coli Not Detected (Not Detect); Vibrio Not Detected (Not Detect); Vibrio cholerae Not Detected (Not Detect); Yersinia enterocolitica Not Detected (Not Detect)
[2021-04-20] MEDS: LORazepam 2 MG/ML INJ 1 MG IV (17:43)
--- NOTE | 2021-04-20 18:27 | PC.NURSE ---
Discharge Note- Patient discharged may reese per doctoer orders. Discharge instructions and educations reviewed with patient and signed. IV lines removed and bandaids applied. Patient dressed self and packed up all personal items. Patient taken to private car with all personal belongings by DRY WALL APPLICATOR via wheelchair at 1825.
--- NOTE | 2021-04-21 00:05 | PC.NURSE ---
AGNIESZKA FROM LAB CALLED AFTER PATIENT DISCHARGED WITH CRITICAL LAB RESULT: 10/26 ANAEROBIC BOTTLES CONTAINED GRAM POSITIVE BACILLI.
[2021-04-21 00:07] LABS: Acinetobacter baumannii Not Detected (Not Detect); Candida albicans Not Detected (Not Detect); Candida glabrata Not Detected (Not Detect); E. coli Not Detected (Not Detect); Enterobacter cloacae complex Not Detected (Not Detect); Enterobacteriaceae species Not Detected (Not Detect); Enterococcus species Not Detected (Not Detect); Haemophilus influenzae Not Detected (Not Detect); Listeria monocytogenes Not Detected (Not Detect); Neisseria meningitidis Not Detected (Not Detect); Proteus species Not Detected (Not Detect); Pseudomonas aeruginosa Not Detected (Not Detect); Serratia marcescens Not Detected (Not Detect); Staphylococcus species Not Detected (Not Detect); Streptococcus agalactiae (Gr B Not Detected (Not Detect); Streptococcus pneumonia Not Detected (Not Detect); Streptococcus pyogenes (Gr A) Not Detected (Not Detect); Streptococcus species Not Detected (Not Detect)
[2021-04-21 00:08] LABS: Candida krusei Not Detected (Not Detect); Candida parapsilosis Not Detected (Not Detect); Candida tropicalis Not Detected (Not Detect)
== END 2021-04-20 18:26 | disposition home or self-care (01) ==
LOC: ED 17:18 → AC 17:31
PROVIDERS: Emergency Medicine; Admitting Provider Specialist; Emergency Provider Emergency Medicine; PCP Student in an Organized Health Care Education/Training Program; Referring Provider Emergency Medicine; Visit Provider Specialist
PROC: 0DJ08ZZ Inspection of Upper Intestinal Tract, Via Natural or Artificial Opening Endoscopic (ICD-10-PCS; CPT 43235; principal; 2021-04-20 11:15)
DX: K29.70 Gastritis, unspecified, without bleeding (principal); K92.0 Hematemesis; K52.9 Noninfective gastroenteritis and colitis, unspecified; F41.9 Anxiety disorder, unspecified; F32.9 Major depressive disorder, single episode, unspecified; Z20.822 Contact with and (suspected) exposure to COVID-19
CPT/HCPCS: 43239; 36415; 74177; 80053; 80305; 80320; 81003; 81015; 83605; 83690; 84145; 85025; 85610; 85730; 86850; 86900; 86901; 87040; 87150; 87205; 87507; 87635; 93005; 96361; 96365; 96366; 96367; 96375; 96376; 99152; 99284; C9803; G0378; C9113; J2060; J2250; J2405; J2543; J3010; J3475; Q9967

== ENCOUNTER 2021-07-31 04:23 | Emergency (ER) | payer OTHER, MEDICAID, SELFPAY ==
[2021-04-20 12:58] VITALS: BMI 26.6
[2021-07-31 04:33] VITALS: BP 129/80; PULSE 125; RESP 20; TEMP 36.4; O2SAT 94; BMI 24.7
--- NOTE | 2021-07-31 04:56 | DI.CT.S_ITS ---
PROCEDURE: CT HEAD/BRAIN WO CON INDICATIONS: fall/left side pain TECHNIQUE: Noncontrast 4.5 mm thick angled axial sections acquired from the foramen magnum to the vertex, with coronal and sagittal reformats. For radiation dose reduction, the following was used: automated exposure control, adjustment of mA and/or kV according to patient size. COMPARISON: [facility], CT, HEAD WITHOUT CONTRAST, 09/22/2016, 7:15. FINDINGS: Image quality: Excellent. CSF spaces: Basal cisterns are patent. No extra-axial fluid collections. Ventricles are normal in size and shape. Brain: No midline shift. No intracranial masses or hemorrhage. Guerrero-white matter interface is normal. Skull and face: Calvarium and visualized facial bones are intact, without suspicious lesions. Sinuses: Visualized sinuses and mastoids are clear. IMPRESSION: No acute intracranial disease process. Dictated by: Emely Oropeza MD, PhD on 07/31/2021 at 7:48 Approved by: Emely Oropeza MD, PhD on 07/31/2021 at 7:50
--- NOTE | 2021-07-31 04:56 | DI.CT.S_ITS ---
PROCEDURE: CT FACIAL BONES WO CON INDICATIONS: fall/left eye pain TECHNIQUE: Noncontrast 2.5 mm thick axial images acquired from the mandible through the frontal sinuses, with coronal and sagittal reformatting. For radiation dose reduction, the following was used: automated exposure control, adjustment of mA and/or kV according to patient size. COMPARISON: None. FINDINGS: Image quality: Excellent. Bones and teeth: Orbital sinclair are intact. Sinus sinclair show no fracture or deformity. Nasal bones and septum are intact. Visualized portions of the mandible demonstrate no fractures or subluxation. Zygomatic arches are intact. Pterygoid plates are intact. Visualized portions of the skull base and auditory canals are intact. Sinuses: Mucosal thickening noted in the maxillary and frontal sinuses bilaterally. Mastoid air cells are aerated. Soft tissues: No edema, masses, or fluid collections. No enlarged lymph nodes. No soft tissue lacerations or debris. Vascular: Visualized vascular structures appear normal in the absence of contrast. Bony vascular foramina and canals are intact. IMPRESSION: No fracture. Dictated by: Emely Oropeza MD, PhD on 07/31/2021 at 7:50 Approved by: Emely Oropeza MD, PhD on 07/31/2021 at 7:52
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
[2021-07-31] MEDS: TET,DIPH,PERTUSS(ACELL),VAC/PF 0.5 ML SYRINGE IM (05:46)
[2021-07-31] MEDS: SILVER SULFADIAZINE 1% CREAM 25 GM 1 APPLIC TOP (05:46)
--- NOTE | 2021-07-31 08:39 | PC.NURSE ---
received patient with hand wrapped already. Rn and dr. Millard on business services associate assessed
--- NOTE | 2021-07-31 08:42 | PC.NURSE ---
see dr. mayen note from night supervisor. hand already wrapped.
[2021-07-31 08:45] VITALS: PULSE 88; RESP 14; TEMP 36.9; O2SAT 98
[2021-07-31 08:46] VITALS: BP 128/69
== END 2021-07-31 08:50 | disposition home or self-care (01) ==
PROVIDERS: Emergency Provider Emergency Medicine; PCP Student in an Organized Health Care Education/Training Program
DX: S00.12XA Contusion of left eyelid and periocular area, initial encounter (principal); T23.229A Burn of second degree of unspecified single finger (nail) except thumb, initial encounter; H57.12 Ocular pain, left eye; W19.XXXA Unspecified fall, initial encounter; X08.8XXA Exposure to other specified smoke, fire and flames, initial encounter; Z23 Encounter for immunization
CPT/HCPCS: 70450; 70486; 90471; 99284; 90715

== ENCOUNTER 2023-03-04 12:00 | Emergency (ER) | payer OTHER, MEDICAID, SELFPAY ==
[2021-04-20 12:58] VITALS: BMI 26.6
[2023-03-04] VITALS (11 sets, daily range): BP systolic 117–142; BP diastolic 61–80; PULSE 93–107; RESP 9–24; TEMP 36.3; O2SAT 94–100; BMI 24.4
[2023-03-04] MEDS: ONDANSETRON 4 MG/2 ML INJ (12:21)
--- NOTE | 2023-03-04 12:24 | ED_ITS ---
HPI - Nausea/Vomiting/Diarrhea General Chief complaint: Abdominal Pain Stated complaint: vomiting, anxiety, blacked out Time Seen by Provider: 03/04/23 12:16 Source: patient and family (brother) Mode of arrival: Wheelchair Limitations: no limitations History of Present Illness HPI Narrative: This is a 27-year-old male with history of panic attacks who used to be on Zoloft, citalopram and hydroxyzine but has stopped those. Patient states he had a similar episode a week ago that resolved on its own. He states his mom gave him a dose of her anxiety medication which ext his symptoms. Patient states he woke about 5:00 a.m. this morning he felt very nauseated had vomiting tried smoking some marijuana and has had persistent vomiting since then, he states he is had about 3 episodes of diarrhea. He states his stomach hurts from vomiting. He states no black or blood in his stools, no blood in his emesis. He states it looked like bile and now it is only been dry heaves. He denies fevers. No chills. He is felt sweaty today. He denies any chest pain or shortness of breath. Patient denies any dysuria, urgency or frequency. No swelling of his extremities. No passing out but did feel sort of weak and took several steps and fell over. Patient states he had a similar episode in the past where he ben cked out and had what he describes as a seizure and a car after a similar episode remotely. Patient states that that was a seizure caused by panic attacks. He denies ever being on any medications for seizures. He does not take any daily medications. He states his panic attack medication was helpful but he stopped it because it made him feel like a robot. He denies any surgeries. He does smoke tobacco, he states he drinks 8-10 alcoholic drinks when he drinks alcohol he states that is usually about 3 times weekly. He denies withdrawal symptoms when he has alcohol or the next day. He does use marijuana. He states he uses intermittently but frequently. He denies any other recreational drugs. He is accompanied by his brother. Related Data Home Medications Medication Instructions Recorded Confirmed sertraline 25 mg tablet 75 mg PO DAILY 06/13/20 03/08/23 Previous Rx's Medication Instructions Recorded omeprazole 40 mg capsule,delayed 40 mg PO DAILY Gastritis #60 caps 04/20/21 release lorazepam 0.5 mg tablet (Ativan) 0.5 mg PO TID PRN nausea and 03/04/23 vomiting #10 tabs ondansetron 4 mg disintegrating 4 mg PO Q8H PRN nausea and 03/08/23 tablet vomiting #20 tabs Allergies Allergy/AdvReac Type Severity Reaction Status Date / Time neomycin Allergy Mild Verified 03/08/23 13:55 [From Neosporin ([id number])] polymyxin B Allergy Mild Verified 03/08/23 13:55 [From Neosporin ([id number])] Review of Systems Review of Systems ROS Unobtainable: All systems reviewed & are unremarkable except as noted in HPI and below Patient History Medical History Conjunctivitis Corneal abrasion Depression (01/26/15) Nasal contusion Rash (01/26/15) Surgical History History of hand surgery Status post bronchoscopy Social History household members: family Smoking Status: Current some day smoker alcohol intake: current Smoking Status: Current some day smoker tobacco type: cigarettes alcohol intake frequency: 3 or more drinks per day Alcohol type: beer Substance Use Type: marijuana Exam Narrative Exam Narrative: GEN: Well-nourished male, alert and oriented x 3, patient appears to be in [id number] distress. HEENT: Atraumatic, pupils are equal round reactive to light, extraocular movements are intact, nares are clear, there is no conjunctival pallor. Throat is clear without any exudates, erythema, tonsillar enlargement or uvular deviation, full range of motion neck. HEART: Slightly tachycardic but regular rate and rhythm without murmur, clicks, rubs. Pulses are equal in upper and lower extremities. No swelling bilateral lower extremities. LUNGS:Lungs clear to auscultation, no wheezes, rales, crackles, chest moves symmetrically, no tachypnea or accessory muscle use. ABD:bowel sounds normal, soft, non-tender, no guarding, rebound, rigidity, no masses noted, no hepatosplenomegaly, nondistended. Patient does have dry heaves but no liquid contents intermittently which did improve during our conversation. :No CVA tenderness MSCL: Non-tender, no muscle atrophy, muscles strength 5/5 upper and lower extremities, full range of motion, normal gait NEURO:CN 2-12 intact, sensation normal SKIN: No rash, erythema or other skin changes Initial Vital Signs Initial Vital Signs: Vital Signs Temperature 97.4 F L 03/04/23 12:14 Pulse Rate 107 H 03/04/23 12:14 Respiratory Rate 20 03/04/23 12:14 Blood Pressure 141/80 H 03/04/23 12:14 Pulse Oximetry 97 03/04/23 12:14 Oxygen Delivery Method Room Air 03/04/23 12:14 Course Orders Ordered: Discontinued Medications Lactated Ringer's (Lactated Ringers) 2,449.41 mls @ 816.47 mls/hr 30 ml/kg infuse over 3 hr (2449.41 ml) IV NOW ONE Stop: 03/04/23 15:22 Last Infusion: 03/04/23 14:39 Dose: 0 mls/hr Documented By: Admin: 03/04/23 12:28 Dose: 816.47 mls/hr Documented By: KAREN Lorazepam (Lorazepam 2 Mg/Ml Inj) 1 mg IV NOW ONE Stop: 03/04/23 12:56 Last Admin: 03/04/23 13:16 Dose: 1 mg Documented By: KB Lorazepam (Lorazepam 0.5 Mg Tablet) 1 mg PO NOW ONE Stop: 03/04/23 15:23 Last Admin: 03/04/23 15:30 Dose: 1 mg Documented By: SB Vital Signs Vital signs: Vital Signs - 8 hr 03/04/23 12:14 03/04/23 13:17 03/04/23 13:18 Temperature 97.4 F L Pulse Rate 107 H 101 H Respiratory Rate 20 Blood Pressure 141/80 H 125/64 Pulse Oximetry 97 100 Oxygen Delivery Method Room Air 03/04/23 13:18 03/04/23 13:30 03/04/23 13:30 Temperature Pulse Rate 97 H 95 H Respiratory Rate 9 L 24 Blood Pressure 117/63 Pulse Oximetry 100 99 Oxygen Delivery Method 03/04/23 14:00 03/04/23 14:00 03/04/23 15:05 Temperature Pulse Rate 99 H 98 H Respiratory Rate 12 15 Blood Pressure 118/61 Pulse Oximetry 96 97 Oxygen Delivery Method 03/04/23 15:30 03/04/23 15:32 03/04/23 15:32 Temperature Pulse Rate 101 H 97 H Respiratory Rate 18 Blood Pressure 130/79 Pulse Oximetry 97 98 Oxygen Delivery Method 03/04/23 15:34 03/04/23 15:34 03/04/23 16:00 Temperature Pulse Rate 93 H Respiratory Rate Blood Pressure 142/71 H 129/67 Pulse Oximetry 98 Oxygen Delivery Method Room Air 03/04/23 16:00 03/04/23 16:30 03/04/23 16:30 Temperature Pulse Rate 99 H 98 H Respiratory Rate 23 10 L Blood Pressure 132/72 Pulse Oximetry 94 98 Oxygen Delivery Method Room Air MDM - Nausea/Vomiting/Diarrhea Lab Data 03/04/23 12:15 03/04/23 12:15 Labs: Lab Results 03/04/23 03/04/23 03/04/23 Range/Units 12:15 12:15 12:15 WBC 16.0 H (4.5-11.0) X10^3/uL RBC 5.06 (4.5-5.9) X10^6/uL Hgb 16.4 (13.5-17.5) g/dL Hct 46.4 (41-53) % MCV 91.7 (80-100) fL MCH 32.4 (26-34) PG MCHC 35.3 (30-36) % RDW 12.3 (11.6-14.8) % Plt Count 386 (150-400) X10^3/uL Neut % (Auto) 69.1 (50-75) % Lymph % (Auto) 22.9 L (25-40) % [place] % (Auto) 6.0 (3-14) % Eos % (Auto) 1.2 L (2-4) % Baso % (Auto) 0.8 (0-2) % Neut # (Auto) 32118 H (5849-4497) /uL Lymph # (Auto) 3700 (9550-6335) /uL [place] # (Auto) 1000 H (0-900) /uL Eos # (Auto) 200 (0-450) /uL Baso # (Auto) 100 (0-100) /uL PT 11.9 (10.1-12.7) SECONDS INR 1.0 (0.9-1.3) APTT 26 (26-36) SECONDS Sodium 139 (137-145) mmol/L Potassium 4.2 (3.4-5.1) mmol/L Chloride 104 (98-107) mmol/L Carbon Dioxide 14 L (22-32) mmol/L BUN 11 (9-20) mg/dL Creatinine 0.86 (0.66-1.25) mg/dL Estimated GFR > 60 (>60) mL/min BUN/Creatinine Ratio 12.8 (6-22) Glucose 146 H (70-100) mg/dL Lactate (0.7-2.1) mmol/L Calcium 9.8 (8.4-10.2) mg/dL Magnesium (1.6-2.3) mg/dL Total Bilirubin 2.2 H (0.2-1.3) mg/dL AST 42 (17-59) IU/L ALT 63 H (<50) IU/L Alkaline Phosphatase 105 (38-126) U/L Total Creatine Kinase 143 (55-170) U/L CK-MB (CK-2) 0.27 (<2.37) ng/mL CK-MB (CK-2) Rel Index 0.2 L (1.5-5.0) % Troponin I < 0.012 (0.01-0.034) ng/mL Total Protein 8.4 H (6.3-8.2) g/dL Albumin 5.2 H (3.5-5.0) g/dL Globulin 3.2 (1.7-4.1) g/dL Albumin/Globulin Ratio 1.6 (1.0-2.8) Lipase 58 (23-300) U/L Procalcitonin 0.04 (<0.5) ng/mL Urine RBC (0-5/HPF) Urine WBC (0-5/HPF) Ur Squamous Epith Cells (0-5/HPF) Urine Bacteria (None) Ur Culture Indicated? U Opiates 300ng/mL cut (Negative) Ur Oxycodone Screen (Negative) Urine Methadone Screen (Negative) Ur Barbiturates Screen (Negative) U Tricyclic Antidepress (Negative) Ur Phencyclidine Scrn (Negative) Ur Amphetamines Screen (Negative) U Methamphetamines Scrn (Negative) Ur MDMA Scrn (Ecstasy) (Negative) U Benzodiazepines Scrn (Negative) Urine Cocaine Screen (Negative) U Marijuana (THC) Screen (Negative) Ethyl Alcohol < 10 ( - 10) mg/dL SARS-CoV-2 (PCR) (Negative) 03/04/23 03/04/23 03/04/23 Range/Units 12:15 12:15 14:40 WBC (4.5-11.0) X10^3/uL RBC (4.5-5.9) X10^6/uL Hgb (13.5-17.5) g/dL Hct (41-53) % MCV (80-100) fL MCH (26-34) PG MCHC (30-36) % RDW (11.6-14.8) % Plt Count (150-400) X10^3/uL Neut % (Auto) (50-75) % Lymph % (Auto) (25-40) % [place] % (Auto) (3-14) % Eos % (Auto) (2-4) % Baso % (Auto) (0-2) % Neut # (Auto) (5430-4413) /uL Lymph # (Auto) (9876-3668) /uL [place] # (Auto) (0-900) /uL Eos # (Auto) (0-450) /uL Baso # (Auto) (0-100) /uL PT (10.1-12.7) SECONDS INR (0.9-1.3) APTT (26-36) SECONDS Sodium (137-145) mmol/L Potassium (3.4-5.1) mmol/L Chloride (98-107) mmol/L Carbon Dioxide (22-32) mmol/L BUN (9-20) mg/dL Creatinine (0.66-1.25) mg/dL Estimated GFR (>60) mL/min BUN/Creatinine Ratio (6-22) Glucose (70-100) mg/dL Lactate 5.4 H* 1.7 (0.7-2.1) mmol/L Calcium (8.4-10.2) mg/dL Magnesium 1.9 (1.6-2.3) mg/dL Total Bilirubin (0.2-1.3) mg/dL AST (17-59) IU/L ALT (<50) IU/L Alkaline Phosphatase (38-126) U/L Total Creatine Kinase (55-170) U/L CK-MB (CK-2) (<2.37) ng/mL CK-MB (CK-2) Rel Index (1.5-5.0) % Troponin I (0.01-0.034) ng/mL Total Protein (6.3-8.2) g/dL Albumin (3.5-5.0) g/dL Globulin (1.7-4.1) g/dL Albumin/Globulin Ratio (1.0-2.8) Lipase (23-300) U/L Procalcitonin (<0.5) ng/mL Urine RBC (0-5/HPF) Urine WBC (0-5/HPF) Ur Squamous Epith Cells (0-5/HPF) Urine Bacteria (None) Ur Culture Indicated? U Opiates 300ng/mL cut (Negative) Ur Oxycodone Screen (Negative) Urine Methadone Screen (Negative) Ur Barbiturates Screen (Negative) U Tricyclic Antidepress (Negative) Ur Phencyclidine Scrn (Negative) Ur Amphetamines Screen (Negative) U Methamphetamines Scrn (Negative) Ur MDMA Scrn (Ecstasy) (Negative) U Benzodiazepines Scrn (Negative) Urine Cocaine Screen (Negative) U Marijuana (THC) Screen (Negative) Ethyl Alcohol ( - 10) mg/dL SARS-CoV-2 (PCR) (Negative) 03/04/23 03/04/23 03/04/23 Range/Units 15:27 15:27 16:13 WBC (4.5-11.0) X10^3/uL RBC (4.5-5.9) X10^6/uL Hgb (13.5-17.5) g/dL Hct (41-53) % MCV (80-100) fL MCH (26-34) PG MCHC (30-36) % RDW (11.6-14.8) % Plt Count (150-400) X10^3/uL Neut % (Auto) (50-75) % Lymph % (Auto) (25-40) % [place] % (Auto) (3-14) % Eos % (Auto) (2-4) % Baso % (Auto) (0-2) % Neut # (Auto) (3617-3521) /uL Lymph # (Auto) (7764-5969) /uL [place] # (Auto) (0-900) /uL Eos # (Auto) (0-450) /uL Baso # (Auto) (0-100) /uL PT (10.1-12.7) SECONDS INR (0.9-1.3) APTT (26-36) SECONDS Sodium (137-145) mmol/L Potassium (3.4-5.1) mmol/L Chloride (98-107) mmol/L Carbon Dioxide (22-32) mmol/L BUN (9-20) mg/dL Creatinine (0.66-1.25) mg/dL Estimated GFR (>60) mL/min BUN/Creatinine Ratio (6-22) Glucose (70-100) mg/dL Lactate (0.7-2.1) mmol/L Calcium (8.4-10.2) mg/dL Magnesium (1.6-2.3) mg/dL Total Bilirubin (0.2-1.3) mg/dL AST (17-59) IU/L ALT (<50) IU/L Alkaline Phosphatase (38-126) U/L Total Creatine Kinase (55-170) U/L CK-MB (CK-2) (<2.37) ng/mL CK-MB (CK-2) Rel Index (1.5-5.0) % Troponin I (0.01-0.034) ng/mL Total Protein (6.3-8.2) g/dL Albumin (3.5-5.0) g/dL Globulin (1.7-4.1) g/dL Albumin/Globulin Ratio (1.0-2.8) Lipase (23-300) U/L Procalcitonin (<0.5) ng/mL Urine RBC None seen (0-5/HPF) Urine WBC 0-1/hpf (0-5/HPF) Ur Squamous Epith Cells 0-1 /hpf (0-5/HPF) Urine Bacteria None seen (None) Ur Culture Indicated? Cult not indicated U Opiates 300ng/mL cut Negative (Negative) Ur Oxycodone Screen Negative (Negative) Urine Methadone Screen Negative (Negative) Ur Barbiturates Screen Negative (Negative) U Tricyclic Antidepress Negative (Negative) Ur Phencyclidine Scrn Negative (Negative) Ur Amphetamines Screen Negative (Negative) U Methamphetamines Scrn Negative (Negative) Ur MDMA Scrn (Ecstasy) Negative (Negative) U Benzodiazepines Scrn Negative (Negative) Urine Cocaine Screen Negative (Negative) U Marijuana (THC) Screen Positive H (Negative) Ethyl Alcohol ( - 10) mg/dL SARS-CoV-2 (PCR) Negative (Negative) Urine Dip Bedside Urine Glucose Negative Bedside Urine Bilirubin - Negative Bedside Urine Ketone +++ 80 Urine Specific [place] 1.000 Bedside Urine Occult Blood - Negative Bedside Urine pH 8.5 Bedside Urine Protein - Negative Bedside Urine Urobilinogen - Negative Bedside Urine Nitrite - Negative Bedside Urine Leukocytes - Negative Esterase Imaging Data CT scan - abdomen/pelvis: Radiologist's Impression: [address] [address] [address] Scan Report Signed Patient: Ronald Tan MR#: [id number] : 1995 Acct:[id number] Age/Sex: 27 / M Date of Service: 03/04/23 Loc: ED Accession Number: [id number] ?? Procedure: CT abdomen pelvis w con Ordering Provider: Maria Elena Langley D.O. PROCEDURE:? CT ABDOMEN PELVIS W CON ? INDICATIONS:? vomiting, abd pain ? TECHNIQUE:? After the administration of oral and intravenous contrast, axial sections were acquired from the lung bases to the pubic symphysis.? Coronal and sagittal reformats were performed.? For radiation dose reduction, the following was used:? automated exp osure control, adjustment of mA and/or kV according to patient size.? ? COMPARISON:[facility], CT, CT ABDOMEN PELVIS W CON, 04/19/2021, 15:45. ? FINDINGS:? Image quality:? Excellent.? ? Lung bases:? Unremarkable.? ? Heart:? No significant findings. ? ? ABDOMEN: Liver:? Unremarkable.? ? Gallbladder:? Unremarkable.? ? Biliary ducts:? Unremarkable.? ? Pancreas:? Unremarkable.? ? Spleen:? Unremarkable.? ? Adrenal Glands:? Unremarkable.? ? Kidneys and Ureters:? Unremarkable.? ? ? Stomach and Bowel:? The distal esophagus, stomach, and small bowel are normal.? There is diffuse thickening of the left and sigmoid colon containing fluid consistent with colitis.? Peritoneum:? No abnormal intraperitoneal fluid.? No free air.? ? Ventral Wall: ? No hernia.? Abdominal Nodes:? No retroperitoneal or mesenteric adenopathy by size criteria.? Vessels:? Aorta and inferior vena cava are normal in size.? ? PELVIS: Pelvic Organs:? Unremarkable.? ? Bladder:? Unremarkable.? ? Pelvic Nodes: No enlarged lymph nodes.? Miscellaneous: No inguinal hernias are seen. ? ? ? Bones:? Unremarkable.? ? ? IMPRESSION:? ? Fluid in the sigmoid colon with diffuse thickening consistent with colitis. ? ? Dictated by: Jaswinder Ribeiro M.D. on 03/04/2023 at 13:54 ? ? Approved by: Jaswinder Ribeiro M.D. on 03/04/2023 at 13:56?? ECG Data Attestation: I personally reviewed and interpreted this ECG as follows: Interpretation: Sinus rhythm rate 88 MS 136 QRS 84 and QTC of 459. MDM Narrative Medical decision making narrative: Patient presents with emesis. Patient chart is noted that he was admitted in March of 2021 with thickening/colitis and for vomiting and hematemesis he was taken for EGD club biopsy. He had diffusely red but no cobblestoning ulceration or blood in the upper check. Biopsies were negative. Patient was discharged home with plan for ppi. Patient received Zofran his emesis improve patient was still feeling pretty nauseated and had a couple more episodes little bit later was given 1 dose of Ativan IV, fluids and on recheck patient is feeling much better. CT imaging today shows some thickening of the bowel consistent with sigmoid colitis. Patient's CT otherwise is unremarkable. Labs show leukocytosis of 16, coags are negative, electrolytes show a CO2 of 14 but normal sodium, potassium and magnesium lactate was elevated at 5.4 with a glucose of 146 and normal renal function. Patient's bilirubins notable be elevated 2.2 was 1.7 on his visit on 04/20/2021 but AST ALT alk-phos are relatively normal ALT is 63, lipase is negative. Patient's trope is negative with a negative procalcitonin. ETOH is negative. Repeat lactate shows significant improvement at 1.7. Urine does not show any signs of infection, patient is positive for THC but no other illicit. Discussed today's findings with patient, his mom's currently at bedside. Discussed that he is thickening and signs of colitis this was noted on prior CT he notes the general surgeon on his last admission had recommended follow up with colonoscopy he had difficulty with a bowel prep and only had a partial scope. Discussed with patient I would recommend follow-up and repeat. Would not start him on antibiotics at this point. Discussed that marijuana can also sometimes cause hyperemesis cannabis, he states he is had some similar symptoms in the past he also notes he does times drinks a lot and we discussed that can also cause his symptoms. Short course of oral benzodiazepine for antinausea as well as symptomatologies there might be little component of withdrawal. Patient was given referral for follow-up and his mom at bedside encouraged him to also follow-up. Patient has been able to tolerate some oral liquids here and oral medication and felt appropriate for discharge with return precautions. Discharge Plan Departure Patient Disposition: Home Clinical Impression: Colitis, Nausea vomiting and diarrhea Instructions: DI for Colitis Activity Restrictions/Additional Instructions: Please follow-up for recheck, your imaging today does show some thickening of the colon you should have follow-up for colonoscopy and biopsy. Please call to set up an appointment, referrals below for general surgery or if you prefer you can follow up with Gastroenterology. Sometimes marijuana can actually exacerbate or worsened vomiting so I would avoid this for the time being. Alcohol use can also times causes particularly if you drink large amounts or if you get any withdrawal symptoms. You may take lorazepam 1 tablet every 6 hours as needed for nausea. [facility] to [facility]. Please return for new or worsening symptoms, fevers, persistent vomiting, vomiting blood, black or bloody stools, new or worsening abdominal pain, lightheadedness or passing out or other new or concerning changes. Prescriptions: New lorazepam [Ativan] 0.5 mg tablet 0.5 mg PO TID PRN (Reason: nausea and vomiting) Qty: 10 0RF No Action ondansetron 4 mg tablet,disintegrating 4 mg PO Q8H PRN (Reason: nausea and vomiting) Qty: 20 0RF sertraline 25 mg tablet 75 mg PO DAILY Patient Comments: take 2 tablets by mouth once daily omeprazole 40 mg capsule,delayed release(DR/EC) 40 mg PO DAILY Qty: 60 0RF Referrals: Opal Adams MD [Physician] - Chente Benz DO, MS [Primary Care Provider] - Rustam Hitchcock MD [Physician] - Stand Alone Forms: Patient Portal/API
[2023-03-04] MEDS: LACTATED RINGERS 2,449.41 ML 816.47 ML IV (12:28)
[2023-03-04 12:29] LABS: Add Manual Diff / Slide Review NO; Basophils Absolute Auto 100 /uL (0-100); Basophils Percent Auto 0.8 % (0-2); Eosinophils Absolute Auto 200 /uL (0-450); Eosinophils Percent Auto 1.2 % (2-4); Hematocrit 46.4 % (41-53); Hemoglobin 16.4 g/dL (13.5-17.5); Lymphocytes Absolute Auto 3700 /uL (1100-4500); Lymphocytes Percent Auto 22.9 % (25-40); Mean Corpuscular HGB Conc 35.3 % (30-36); Mean Corpuscular Hemoglobin 32.4 PG (26-34); Mean Corpuscular Volume 91.7 fL (80-100); Monocytes Absolute Auto 1000 /uL (0-900); Neutrophils Absolute Auto 11000 /uL (1500-7000); Neutrophils Percent Auto 69.1 % (50-75); Platelet Count 386 X10^3/uL (150-400); Red Blood Cell Count 5.06 X10^6/uL (4.5-5.9); Red Cell Distribution Width 12.3 % (11.6-14.8)
[2023-03-04 12:32] LABS: Prothrombin Time 11.9 SECONDS (10.1-12.7)
[2023-03-04 12:34] LABS: PTT Partial Thromboplastin Tim 26 SECONDS (26-36)
[2023-03-04 12:36] LABS: Albumin 5.2 g/dL (3.5-5.0); Albumin Globulin Ratio 1.6 (1.0-2.8); Alkaline Phosphatase 105 U/L (38-126); Aspartate Aminotransferase 42 IU/L (17-59); BUN Creatinine Ratio 12.8 (6-22); Bilirubin Total 2.2 mg/dL (0.2-1.3); Blood Urea Nitrogen 11 mg/dL (9-20); Calcium 9.8 mg/dL (8.4-10.2); Carbon Dioxide 14 mmol/L (22-32); Chloride 104 mmol/L (98-107); Creatine Kinase 143 U/L (55-170); Estimated Glomerular Filt Rate > 60 mL/min (>60); Ethanol (ETOH) < 10 mg/dL; Globulin 3.2 g/dL (1.7-4.1); Glucose 146 mg/dL (70-100); HEMOLYSIS < 15 (0-50); Lipase 58 U/L (23-300); Potassium 4.2 mmol/L (3.4-5.1); Sodium 139 mmol/L (137-145); Total Protein 8.4 g/dL (6.3-8.2)
[2023-03-04 12:42] LABS: Magnesium 1.9 mg/dL (1.6-2.3)
[2023-03-04 12:43] LABS: Alanine Aminotransferase 63 IU/L (<50)
[2023-03-04 12:48] LABS: Troponin I < 0.012 ng/mL (0.01-0.034)
[2023-03-04 12:49] LABS: Lactate (Lactic Acid) 5.4 mmol/L (0.7-2.1)
[2023-03-04 12:51] LABS: CKMB % Relative Index 0.2 % (1.5-5.0); Creatine Kinase MB 0.27 ng/mL (<2.37)
[2023-03-04 12:53] LABS: Procalcitonin 0.04 ng/mL (<0.5)
--- NOTE | 2023-03-04 12:53 | DI.CT.S_ITS ---
PROCEDURE: CT ABDOMEN PELVIS W CON INDICATIONS: vomiting, abd pain TECHNIQUE: After the administration of oral and intravenous contrast, axial sections were acquired from the lung bases to the pubic symphysis. Coronal and sagittal reformats were performed. For radiation dose reduction, the following was used: automated exposure control, adjustment of mA and/or kV according to patient size. COMPARISON:[facility], CT, CT ABDOMEN PELVIS W CON, 04/19/2021, 15:45. FINDINGS: Image quality: Excellent. Lung bases: Unremarkable. Heart: No significant findings. ABDOMEN: Liver: Unremarkable. Gallbladder: Unremarkable. Biliary ducts: Unremarkable. Pancreas: Unremarkable. Spleen: Unremarkable. Adrenal Glands: Unremarkable. Kidneys and Ureters: Unremarkable. Stomach and Bowel: The distal esophagus, stomach, and small bowel are normal. There is diffuse thickening of the left and sigmoid colon containing fluid consistent with colitis. Peritoneum: No abnormal intraperitoneal fluid. No free air. Ventral Wall: No hernia. Abdominal Nodes: No retroperitoneal or mesenteric adenopathy by size criteria. Vessels: Aorta and inferior vena cava are normal in size. PELVIS: Pelvic Organs: Unremarkable. Bladder: Unremarkable. Pelvic Nodes: No enlarged lymph nodes. Miscellaneous: No inguinal hernias are seen. Bones: Unremarkable. IMPRESSION: Fluid in the sigmoid colon with diffuse thickening consistent with colitis. Dictated by: Jaswinder Ribeiro M.D. on 03/04/2023 at 13:54 Approved by: Jaswinder Ribeiro M.D. on 03/04/2023 at 13:56
[2023-03-04] MEDS: LORazepam 2 MG/ML INJ 1 MG IV (13:16)
[2023-03-04 14:26] LABS: Reflexed Lactate in 2 Hours Y
[2023-03-04 14:58] LABS: Lactate 2HR (Lactic Acid Rflx) 1.7 mmol/L (0.7-2.1)
[2023-03-04] MEDS: LORazepam 0.5 MG TABLET 1 MG PO (15:30)
[2023-03-04 15:49] LABS: UR Morphine/Opiate cutoff 300 Negative (Negative); Ur Creatinine Normal (Normal); Ur Specific Gravity Normal (Normal); Urine Amphetamines Negative (Negative); Urine Barbiturates Negative (Negative); Urine Benzodiazepines Negative (Negative); Urine Cocaine Negative (Negative); Urine MDMA Negative (Negative); Urine Methadone Negative (Negative); Urine Methamphetamines Negative (Negative); Urine Oxycodone Negative (Negative); Urine Phencyclidine Negative (Negative); Urine Tetrahydrocannabinol Positive (Negative); Urine Tricyclic Antidepressant Negative (Negative); Urine pH Normal (Normal)
[2023-03-04 15:56] LABS: RBC Urine None Seen (0-5/HPF); Squamous Epithelial Cell Urine 0-1 /HPF (0-5/HPF); WBC Urine 0-1/HPF (0-5/HPF)
[2023-03-04 15:57] LABS: Bacteria Urine None Seen; Culture Indicated Urine Cult Not Indicated
[2023-03-04 16:33] LABS: COVID19 -Nasal RAPID Negative (Negative)
== END 2023-03-04 16:57 | disposition home or self-care (01) ==
PROVIDERS: Emergency Provider Emergency Medicine; PCP Student in an Organized Health Care Education/Training Program
DX: K52.9 Noninfective gastroenteritis and colitis, unspecified (principal); R11.2 Nausea with vomiting, unspecified; R10.9 Unspecified abdominal pain; F12.90 Cannabis use, unspecified, uncomplicated; Z20.822 Contact with and (suspected) exposure to COVID-19
CPT/HCPCS: 36415; 74177; 80053; 80305; 80320; 81003; 81015; 82550; 82553; 83605; 83690; 83735; 84145; 84484; 85025; 85610; 85730; 87040; 87635; 93005; 96361; 96374; 96375; 99284; C9803; J2060; J2405

== ENCOUNTER 2023-04-20 06:45 | Day surgery (SDC) | payer OTHER, MEDICAID, SELFPAY ==
[2021-04-20 12:58] VITALS: BMI 26.6
[2023-04-20] VITALS (7 sets, daily range): BP systolic 104–132; BP diastolic 45–82; PULSE 73–83; RESP 12–23; TEMP 36.1–36.2; O2SAT 92–100; BMI 24.4
--- NOTE | 2023-04-20 | PATH_ITS ---
[facility] Accession Number: [id number] No. of containers..07 Tissue . 01 Material submitted: . PART A: duodenum - DUODENUM PART B: stomach - ANTRUM PART C: colon - RIGHT COLON PART D: colon - TRANSVERSE PART E: colon - LEFT COLON PART F: rectum - RECTUM PART G: ileum - TERMINAL ILEUM . 01 Clinical history: . G) R/O CROHN'S DISEASE . 01 Diagnosis: A. Duodenum, Biopsy: Duodenal mucosa with no diagnostic abnormality. Negative for active inflammation, features of sprue, dysplasia, or malignancy. . B. Stomach, Antrum, Biopsy: Antral mucosa with mild chronic gastritis. Negative for Helicobacter by immunohistochemistry. Negative for intestinal metaplasia. Negative for dysplasia and malignancy. . C-E. Right Colon, Transverse Colon, Left Colon, Biopsies: Colonic mucosa with no diagnostic abnormality. Negative for active, chronic, and microscopic colitis. Negative for dysplasia and malignancy. . F. Rectum, Biopsies: Rectal mucosa with no diagnostic abnormality. Negative for active, chronic, and microscopic colitis. Negative for dysplasia and malignancy. . G. Terminal Ileum, Biopsy: Small bowel mucosa with no diagnostic abnormality. Negative for active inflammation, dysplasia, and malignancy. [facility] 05/02/2023 1654 Local . 01 Electronically signed: . Peri Thorpe MD, Pathologist NPI- [id number] . 01 Gross description: . Part A: DUODENUM: Received in formalin are 2 fragment(s) of meeks, soft tissue measuring 0.4 x 0.2 x 0.1 cm to 0.3 x 0.2 x 0.1 cm submitted entirely in 1 cassette(s) Part B: ANTRUM: Received in formalin are 2 fragment(s) of meeks, soft tissue measuring 0.3 x 0.2 x 0.2 cm to 0.2 x 0.2 x 0.1 cm submitted entirely in 1 cassette(s) Part C: RIGHT COLON: Received in formalin are 2 fragment(s) of meeks, soft tissue measuring 0.7 x 0.3 x 0.1 cm to 0.2 x 0.2 x 0.1 cm submitted entirely in 1 cassette(s) Part D: TRANSVERSE : Received in formalin are 2 fragment(s) of meeks, soft tissue measuring 0.8 x 0.3 x 0.1 cm to 07 x 0.2 x 0.1 cm submitted entirely in 1 cassette(s) Part E: LEFT COLON: Received in formalin are 3 fragment(s) of meeks, soft tissue measuring 0.5 x 0.3 x 0.1 cm to 0.3 x 0.2 x 0.1 cm submitted entirely in 1 cassette(s) Part F: RECTUM: Received in formalin are 2 fragment(s) of meeks, soft tissue measuring 0.7 x 0.4 x 0.1 cm to 0.5 x 0.3 x 0.1 cm submitted entirely in 1 cassette(s) Part G: TERMINAL ILEUM: Received in formalin is 1 fragment(s) of meeks, soft tissue measuring 0.5 x 0.3 x 0.1 cm submitted entirely in 1 cassette(s) /[facility] 04/27/2023 1144 Local . 01 Microscopic: . B. An immunohistochemical stain was performed to evaluate for Helicobacter organisms and is negative. The control stain showed appropriate reactivity. . * This test was developed and its performance characteristics determined by [facility]. It has not been cleared or approved by the U.S. Food and Drug Administration. The FDA has determined that such clearance or approval is not necessary. This test is used for clinical purposes. It should not be regarded as investigational or for research. . 01 Pathologist provided ICD-10: R10.9 . 01 CPT . 785242, 951297, 092374, 598697, 206977, 127556, 591259, M90536 Specimen Comment: A courtesy copy of this report has been sent to [phone] Performed at: 01 [facility] [address] [place] [address] [address] [facility], [place], [place] [id number] MD Ezra Johns MD Phone: [phone]
[2023-04-20] MEDS: LACTATED RINGERS 1,000 ML 42 ML IV ×2 (07:27→08:53)
--- NOTE | 2023-04-20 07:29 | PM.HP.1 ---
History of Present Illness History of Present Illness Date Patient Seen: 04/20/23 Time Patient Seen: 07:29 Chief complaint: [facility] [place] Narrative: Ronald is a 27-year-old man who presented last month with nausea diarrhea mucus stools. A CT scan was performed that was suggestive of sigmoid colitis. See May office note for details. He was consented for an EGD and colonoscopy. [facility], [facility] Medical History Conjunctivitis Corneal abrasion Depression (01/26/15) Nasal contusion Rash (01/26/15) Surgical History History of hand surgery Status post bronchoscopy Social History household members: family Smoking Status: Current some day smoker alcohol intake: never Meds Home Medications and Allergies Allergies Allergy/AdvReac Type Severity Reaction Status Date / Time neomycin Allergy Mild Verified 04/20/23 06:58 [From Neosporin ([id number])] polymyxin B Allergy Mild Verified 04/20/23 06:58 [From Neosporin ([id number])] Exam Vital Signs (past 8 hours): - 04/20/23 07:17 Temperature 97.1 F L Pulse Rate 83 Respiratory Rate 18 Blood Pressure 132/82 Pulse Oximetry 100 Oxygen Delivery Method Room Air Oxygen Delivery Method Room Air Const General: healthy appearing Resp Effort & Inspection: normal respiratory effort Assessment & Plan Assessment and plan (1) Colitis: Status: Acute Plan We reviewed the risks and benefits of EGD and colonoscopy for diagnostic purposes and he would like proceed.
--- NOTE | 2023-04-20 08:17 | P.OP.EGD&C_ITS ---
Operative Date/Time/Diagnoses Date of procedure: 04/20/23 Time of procedure: 08:18 Pre-op diagnosis: Nausea and colitis Post-op diagnosis: same Procedure & Clinicians Study performed: EGD and colonoscopy Same procedure as scheduled: Yes Surgeon: Michel Simeon Procedure Notes Procedure in detail: Surgeon: Michel Simeon MD Anesthesia: Danial Galloway CRNA Procedure in detail: A timeout was performed. A bite blocked was placed and monitors were attached to the patient. The patient was positioned in a left lateral decubitus position. Sedation was administered. Once the patient was sedated the endoscope was inserted through the bite block and passed through the esophagus and stomach and into the duodenum. No abnormalities were seen. Random biopsies were taken from the duodenum with cold forceps. We then withdrew the scope into the stomach. No abnormalities were seen. Random biop sies were taken from the antrum with cold forceps. The endoscope was retroflexed and a small hiatal hernia was observed. The endoscope was straightned and withdrawn into the esophagus. No abnormalities were seen. Findings: Small hiatal hernia Next we repositioned the patient for a colonoscopy. A digital rectal exam was performed and was normal. The colonoscope was inserted and advanced to the cecum. The appendiceal orifice was identified and photographed. The terminal ileum was intubated and no abnormalities were seen. Random biopsies were taken from the terminal ileum mucosa with the cold Jumbo forceps. The scope was slowly withdrawn over greater than 6 minutes. No abnormalities were seen. Random biopsies were taken from the right colon, left colon and rectum with the Jumbo forceps. The scope was retroflexed in the rectum and further abnormalities were seen. Findings: Normal colon and terminal ileum EBL: 10 mL Scope withdrawal time: 12 minutes Sedation minutes: 16 minutes Post-procedure Disposition: PACU
[2023-04-20] MEDS: ONDANSETRON 4 MG/2 ML INJ IV (08:18)
== END 2023-04-20 09:11 | disposition home or self-care (01) ==
PROVIDERS: Referring Provider Surgery; Visit Provider Surgery
PROC: 0DJD8ZZ Inspection of Lower Intestinal Tract, Via Natural or Artificial Opening Endoscopic (ICD-10-PCS; CPT 45378; principal; 2023-04-20 07:45)
PROC: 0DJ08ZZ Inspection of Upper Intestinal Tract, Via Natural or Artificial Opening Endoscopic (ICD-10-PCS; CPT 43235; 2023-04-20 07:45)
DX: K29.50 Unspecified chronic gastritis without bleeding (principal); K44.9 Diaphragmatic hernia without obstruction or gangrene
CPT/HCPCS: 45380; 43239; J2250; J2405; J2704; J3010

== ENCOUNTER → 2024-04-12 09:44 | Outpatient (CLI) | payer OTHER, MEDICAID, SELFPAY ==
[2021-04-20 12:58] VITALS: BMI 26.6
--- NOTE | 2024-04-12 09:47 | DI.RAD.S_ITS ---
PROCEDURE: XR CHEST 2V INDICATIONS: Cough TECHNIQUE: 2 views of the chest were acquired. COMPARISON: Located Within [facility], CR, XR CHEST 1V, 03/29/2020, 14:37. FINDINGS: Surgical changes and devices: None. Lungs and pleura: Lungs are clear. No pleural effusions or pneumothorax. Mediastinum: Mediastinal contours are normal. Heart size is normal. Bones and chest wall: No suspicious bony abnormalities. Soft tissues appear unremarkable. IMPRESSION: No acute cardiopulmonary abnormality is seen. Dictated by: Lili Denney M.D. on 04/12/2024 at 15:44 Approved by: Lili Denney M.D. on 04/12/2024 at 15:48
== END ==
PROVIDERS: Referring Provider Nurse Practitioner Family; Visit Provider Nurse Practitioner Family
DX: R05.9 Cough, unspecified (principal)
CPT/HCPCS: 71046